=== PATIENT | female | born 1945 | race Caucasian/White ===

== ENCOUNTER → 2016-04-08 | Outpatient (CLI) | payer OTHER ==
[~2016-04-08] MED LIST: ACET-1311 PO; ANAS1TAB19 PO; ASPI-390 PO; ASPI325T45 PO; CHLO1TAB PO; COEN1CAP37 PO; DIPH-416 PO; DIPH25CA65 PO; FEXO3TAB PO; FLUT1INH INH; GLUCTAB54 PO; INDSR80 PO; IPRA1AER2 INH; JOINT EFFORT PO; LEVO88TA3 PO; MISCCAP80 PO; MULTTAB58 PO; NAPR1TAB9 PO; ONDA4TAB46 PO; TURM1CAP4 PO; [UNRECOGNIZED DRUG - OTHER] PO
[2016-04-08 15:55] LABS: BASO % 0.2 %; BASO ABS # 0.04 K/uL (0-0.2); COMPLETE YES; HEMATOCRIT 37.7 % (37-47); IG% 0.8 %; LYMPH ABS # 2.91 K/uL (1.2-3.4); MEAN CELL VOLUME 89.1 fL (80-100); MEAN CORPUSCULAR HEMOGLOBIN 29.1 pg (25-34); MEAN CORPUSCULAR HGB CONC 32.6 g/dl (32-36); MEAN PLATELET VOLUME 9.5 fL (7.4-10.4); MONO % 12.9 %; NEUT % 68.1 %; PLATELET COUNT 362 K/uL (130-400); RED BLOOD COUNT 4.23 M/uL (4.2-5.4); WHITE BLOOD COUNT 19.42 K/uL (4.8-10.8)
[2016-04-08 18:14] LABS: ALB/GLOB RATIO 0.7 (0.9-2); ALKALINE PHOSPHATASE 106 U/L (45-117); ALT/SGPT 17 U/L (12-78); AST/SGOT 15 U/L (15-37); BLOOD UREA NITROGEN 14 mg/dl (7-18); BUN/CREATININE RATIO 15.5 (10-20); CALCIUM 9.6 mg/dl (8.5-10.1); CARBON DIOXIDE 32 mmol/L (21-32); CHLORIDE 98 mmol/L (98-107); CREATININE 0.88 mg/dl (0.60-1.20); GLUCOSE 97 mg/dl (70-99); POTASSIUM 4.6 mmol/L (3.5-5.1); SODIUM 137 mmol/L (136-145)
[2016-04-08 18:25] LABS: CHOLESTEROL 171 mg/dl (0-200); CHOLESTEROL/HDL RATIO 3.2; HDL CHOLESTEROL 53 mg/dl; LDL CHOLESTEROL CALCULATED 103 mg/dl; TRIGLYCERIDES 73 mg/dl (0-150); VERY LOW DENSITY LIPOPROT CALC 15 mg/dl
== END | disposition home or self-care (01) ==
LOC: C.LAB1850 13:41
PROVIDERS: ATTEND Internal Medicine Pulmonary Disease
DX: E66.01 Morbid (severe) obesity due to excess calories (principal); E03.9 Hypothyroidism, unspecified; I10 Essential (primary) hypertension; E78.5 Hyperlipidemia, unspecified; D72.9 Disorder of white blood cells, unspecified; G47.33 Obstructive sleep apnea (adult) (pediatric); J96.91 Respiratory failure, unspecified with hypoxia; C50.911 Malignant neoplasm of unspecified site of right female breast; G25.81 Restless legs syndrome

== ENCOUNTER → 2016-04-10 | Outpatient (CLI) | payer OTHER | END | disposition home or self-care (01) | LOC: C.LABSPEC 15:42 | PROVIDERS: ATTEND Internal Medicine Pulmonary Disease | DX: Z98.890 Other specified postprocedural states (principal) ==

== ENCOUNTER → 2016-04-28 | Day surgery (SDC) | payer OTHER ==
[2016-04-19 11:00] VITALS: BMI 59.0
[~2016-04-28] VITALS: Ht 167.6 cm; Wt 170.4 kg
[~2016-04-28] MED LIST changes: +ACETAMINOPHEN 500 MG TAB PO ONE; -COEN1CAP37 PO; -GLUCTAB54 PO; +LABETALOL HCL IV 5 MG/ML 20ML ONE; +LIDOCAINE HCL 2% 2 ML VIAL (20MG/ML) ONE; +MIDAZOLAM HCL 1 MG/ML 2ML VIAL ONE; -MISCCAP80 PO; +NURSING VERBAL MED ORDER ONE; +PROPOFOL IV EMULSION 10 MG/ML 20 ML VIAL IV ONE; -TURM1CAP4 PO
[2016-04-28 13:15] VITALS: Ht 167.6 cm; Wt 170.4 kg
--- NOTE | 2016-04-28 13:36 | Endo History and Physical ---
History & Physical Date of Service: Apr 28, 2016. Chief Complaint: Screening Referring Physician: Dr. Govea History of Present Illness 70 yo CF who presents for screening colonoscopy. Past Medical History Blood Dyscrasias, Cancer, Sleep Apnea, Thyroid Disease Past Surgical History Hx Cardiac Surgery: No Hx Internal Defibrillator: No Hx Pacemaker: No Hx Abdominal Surgery: Yes (CIRO, LAPRAOSCOPY, TUBAL LIGATION) Hx of Implantable Prosthesis: No Hx Post-Op Nausea and Vomiting: No Hx Cancer Surgery: Yes (RT BREAST LUMP AND LYMPH NODE REMOVAL) Hx Thoracic Surgery: No Hx Orthopedic: No Hx Urinary Tract Surgery: No Family History Polyp Social History Smoking Status: Never Smoker Hx Substance Use: Yes (HX MARIJUANA USE ) Hx Alcohol Use: No Allergies Coded Allergies: Latex1 -Allergic Contact Dermititis (Verified Allergy, Unknown, IF ON SKIN FOR LONG PERIOD OF TIME, SHE GETS RED,RASH,ITCH, 04/28/16) Nickel (Verified Allergy, Unknown, contact dermatitis, 04/28/16) Codeine (Unverified Adverse Reaction, Mild, GI UPSET, 04/28/16) Current Medications Reported Home Medications Medications Dose Route/Sig Max Daily Dose Days Date Category Dose Instructions Contac Cold/Flu Day/Night (Chlorpheniramine-Phenylephrine) 1 Tab Tab 1 Tab PO DAILY PRN 04/19/16 Reported [Joint Effort] 1 Pkt PO QPM 04/19/16 Reported Breo Ellipta (Fluticasone Furoate-Vilanterol) 1 Inh Inh 1 Puff INH UD 04/19/16 Reported Arimidex (Anastrozole) 1 Mg Tab 1 Mg PO QAM 04/19/16 Reported Benadryl Allergy (Diphenhydramine Hcl) 25 Mg Cap 1 Cap PO HS PRN 09/05/15 Reported Lomotil (Diphenoxylate HCl/Atropine) Tab 1 Tab PO BID PRN 09/05/15 Reported Zofran (Ondansetron HCl) 4 Mg Tab 4 Mg PO BID PRN 09/05/15 Reported [Seratame] 2 Tab PO HS 09/05/15 Reported RESTLESS LEG Aleve (Naproxen) 220 Mg Tab 440 Mg PO HS 09/05/15 Reported Mucinex Allergy (Fexofenadine HCl) 180 Mg Tab 180 Mg PO BID 09/05/15 Reported Tylenol (Acetaminophen) 325 Mg Tab 650 Mg PO BID PRN 5/24/16 Reported Excedrin Migraine (Rqklmcp-Vdmnnawragrpq-Rhcbmcxx) 1 Tab Tab 1 Tab PO QAM PRN 08/15/15 Reported Multivitamin (Multiple Vitamin) 1 Tab Tab 1 Tab PO QAM 08/15/15 Reported Aspirin 325 Mg Tab 1 Tab PO PM 08/15/15 Reported Levothyroxine Sodium 88 Mcg Tab 1 Tab PO QAM 08/11/15 Reported Combivent Respimat (Ipratropium-Albuterol) 1 Aer Aer 2 Puffs INH QID PRN 07/16/14 Reported Propranolol HCl ER (Propranolol HCl) 80 Mg Capcr 80 Mg PO QPM 06/23/14 Reported Vital Signs Weight (Kilograms): 170.45 Height (Feet): 5 Height (Inches): 6 Physical Exam General Appearance: WD/WN, no apparent distress Respiratory/Chest: Auscultation: breath sounds normal Cardiovascular: Heart Auscultation: RRR Abdomen: Bowel Sounds: normal Inspection & Palpation: soft, non-distended, no tenderness, guarding & rebound Assessment and Plan Assessment: 70 yo CF who presents for screening colonoscopy. Plan: Proceed with colonoscopy.
--- NOTE | 2016-04-28 14:35 | Discharge Instructions ---
Endoscopy Patient Instructions Date / Procedure(s) Performed Apr 28, 2016. Colonoscopy Allergy Information Coded Allergies: Latex1 -Allergic Contact Dermititis (Verified Allergy, Unknown, IF ON SKIN FOR LONG PERIOD OF TIME, SHE GETS RED,RASH,ITCH, 04/28/16) Nickel (Verified Allergy, Unknown, contact dermatitis, 04/28/16) Codeine (Unverified Adverse Reaction, Mild, GI UPSET, 04/28/16) Discharge Date / Findings Apr 28, 2016. Colon polyps Rectal polyps Internal hemorrhoids Medication Instructions Stopped Medication(s): TAKE ONLY THYROID PROPANOLOL AND ARIMIIDEX OK to resume all medications today as prescribed Reported Home Medications Medications Dose Route/Sig Max Daily Dose Days Date Category Dose Instructions Contac Cold/Flu Day/Night (Chlorpheniramine-Phenylephrine) 1 Tab Tab 1 Tab PO DAILY PRN 04/19/16 Reported [Joint Effort] 1 Pkt PO QPM 04/19/16 Reported Breo Ellipta (Fluticasone Furoate-Vilanterol) 1 Inh Inh 1 Puff INH UD 04/19/16 Reported Arimidex (Anastrozole) 1 Mg Tab 1 Mg PO QAM 04/19/16 Reported Benadryl Allergy (Diphenhydramine Hcl) 25 Mg Cap 1 Cap PO HS PRN 09/05/15 Reported Lomotil (Diphenoxylate HCl/Atropine) Tab 1 Tab PO BID PRN 09/05/15 Reported Zofran (Ondansetron HCl) 4 Mg Tab 4 Mg PO BID PRN 09/05/15 Reported [Seratame] 2 Tab PO HS 09/05/15 Reported RESTLESS LEG Aleve (Naproxen) 220 Mg Tab 440 Mg PO HS 09/05/15 Reported Mucinex Allergy (Fexofenadine HCl) 180 Mg Tab 180 Mg PO BID 09/05/15 Reported Tylenol (Acetaminophen) 325 Mg Tab 650 Mg PO BID PRN 08/19/15 Reported Excedrin Migraine (Husylns-Mutslxofeolvm-Qlbofwrb) 1 Tab Tab 1 Tab PO QAM PRN 08/15/15 Reported Multivitamin (Multiple Vitamin) 1 Tab Tab 1 Tab PO QAM 08/15/15 Reported Aspirin 325 Mg Tab 1 Tab PO PM 08/15/15 Reported Levothyroxine Sodium 88 Mcg Tab 1 Tab PO QAM 08/11/15 Reported Combivent Respimat (Ipratropium-Albuterol) 1 Aer Aer 2 Puffs INH QID PRN 07/16/14 Reported Propranolol HCl ER (Propranolol HCl) 80 Mg Capcr 80 Mg PO QPM 06/23/14 Reported Provider Instructions Activity Restrictions - No exercising or heavy lifting for 24 hours. - Do not drink alcohol the day of the procedure. - Do not drive a car or operate machinery until the day after the procedure. - Do not make any important decisions or sign important papers in 24 hours after the procedure. Following Day: - Return to full activity which may include returning to work/school. Diet Start your diet with liquids and light foods (jello, soup, juice, toast). Then eat your usual diet if not nauseated. Treatment For Common After Affects For mild abdominal pain, bloating, or excessive gas: - Rest - Eat lightly - Lie on right side Follow-Up Information Follow-up with DR ROME as scheduled Anesthesia Information What You Should Know You have had a procedure that required some medicine to reduce anxiety and discomfort. This treatment is called moderate sedation. After receiving the treatment, you may be sleepy, but you will be able to breathe on your own. The effects of the treatment may last for several hours. Follow these instructions along with Activity/Diet recommendations noted above: * Do NOT do anything where dizziness or clumsiness would be dangerous. * Rest quietly at home today, then you can be up and about tomorrow. * Have a responsible person stay with you the rest of today. * You may have had an I.V. today. If so, you may take the dressing off later today. Recommendations Call your doctor if: * Trouble breathing * Continuous vomiting for more than 24 hours * Temperature above 101 degrees * Severe abdominal pain or bloating * Pain not relieved by pain medicine ordered * There is increased drainage or redness from any incision * A large amount of rectal bleeding greater than 2-3 tablespoons. (If you had a polyp/s removed or have hemorrhoids, a small amount of blood - from the rectum is to be expected.) * You have any unanswered questions or concerns. IN THE EVENT OF A SERIOUS EMERGENCY, GO TO THE NEAREST EMERGENCY ROOM Your discharge instructions were prepared by provider Errol Fitzgerald. Patient Instructions Signature Page Rose Santos Patient (or Guardian) Signature/Date: I have read and understand the instructions given to me by my caregivers. Caregiver/RN/Doctor Signature/Date: The above-named patient and/or guardian has received patient instructions on this date. + Original Patient Signature Page (only) stays with chart. Please make copy for patient.
--- NOTE | 2016-04-28 14:40 | GI REPORT ---
Procedure Date: 04/28/2016 1:59 PM Procedure: Colonoscopy Indications: Screening for colorectal malignant neoplasm Medicines: Monitored Anesthesia Care Complications: No immediate complications. Estimated Blood Loss: Estimated blood loss: none. Procedure: Pre-Anesthesia Assessment: - Prior to the procedure, a History and Physical was performed, and patient medications and allergies were reviewed. The patient's tolerance of previous anesthesia was also reviewed. The risks and benefits of the procedure and the sedation options and risks were discussed with the patient. All questions were answered, and informed consent was obtained. Prior Anticoagulants: The patient has taken aspirin, last dose was 1 day prior to procedure. ASA Grade Assessment: IV - A patient with severe systemic disease that is a constant threat to life. After reviewing the risks and benefits, the patient was deemed in satisfactory condition to undergo the procedure. After I obtained informed consent, the scope was passed under direct vision. Throughout the procedure, the patient's blood pressure, pulse, and oxygen saturations were monitored continuously. The scope was introduced through the anus and advanced to the terminal ileum. The colonoscopy was performed without difficulty. The patient tolerated the procedure well. The quality of the bowel preparation was good. The terminal ileum, ileocecal valve, appendiceal orifice, and rectum were photographed. Findings: Four sessile polyps were found in the rectum and in the cecum. The polyps were 5 to 8 mm in size. These polyps were removed with a hot snare. Resection and retrieval were complete. Non-bleeding internal hemorrhoids were found during retroflexion. The hemorrhoids were small. Impression: - Four 5 to 8 mm polyps in the rectum and in the cecum, removed with a hot snare. Resected and retrieved. - Non-bleeding internal hemorrhoids. Recommendation: - Resume previous diet. - Continue present medications. - Repeat colonoscopy for surveillance based on pathology results. - Return to primary care physician as previously scheduled. Errol Fitzgerald DO 04/28/2016 2:41:00 PM This report has been signed electronically. Note Initiated On: 04/28/2016 1:59 PM
--- NOTE | 2016-04-28 15:09 | Anesthesiology Progress Note ---
Anesthesia Post Op Note Date & Time Apr 28, 2016 at 15:09 Vital Signs Pain Intensity: 0 Vital Signs Past 12 Hours Date Time Temp Pulse Resp B/P Pulse Ox O2 Delivery O2 Flow Rate FiO2 04/28/16 14:58 87 20 185/78 97 Room Air 04/28/16 14:40 85 20 164/71 97 Room Air 04/28/16 13:41 36.5 83 24 131/49 95 Room Air Notes Mental Status: alert / awake / arousable, participated in evaluation Pt Amnestic to Procedure: Yes Nausea / Vomiting: adequately controlled Pain: adequately controlled Airway Patency, RR, SpO2: stable & adequate BP & HR: stable & adequate Hydration State: stable & adequate Anesthetic Complications: no major complications apparent
[2016-04-28 15:31] VITALS: BP 142/61; PULSE 81; O2SAT 97
== END | disposition home or self-care (01) ==
LOC: C.GI 12:24
PROVIDERS: ATTEND Internal Medicine
DX: Z12.11 Encounter for screening for malignant neoplasm of colon (principal); D12.0 Benign neoplasm of cecum; D12.8 Benign neoplasm of rectum; K64.8 Other hemorrhoids

== ENCOUNTER → 2016-12-10 | Outpatient (CLI) | payer OTHER ==
[~2016-12-10] MED LIST changes: -ACETAMINOPHEN 500 MG TAB PO ONE; -LABETALOL HCL IV 5 MG/ML 20ML ONE; -LIDOCAINE HCL 2% 2 ML VIAL (20MG/ML) ONE; -MIDAZOLAM HCL 1 MG/ML 2ML VIAL ONE; -NURSING VERBAL MED ORDER ONE; -PROPOFOL IV EMULSION 10 MG/ML 20 ML VIAL IV ONE
--- NOTE | 2016-12-13 13:09 | MAMMOGRAPHY REPORT ---
BILATERAL DIGITAL SCREENING MAMMOGRAM WITH CAD: 12/10/2016 CLINICAL HISTORY: Asymptomatic. Personal history of breast cancer. TECHNIQUE: Current study was also evaluated with a Computer Aided Detection (CAD) system. Bilateral CC and MLO views were obtained. Tomosynthesis images were attempted however the patient could not t olerate holding her breath for adequate images. Only tomosynthesis images of the right cc view were obtained. COMPARISON: Comparison is made to exams dated: 08/19/2015 specimen, 08/19/2015 localization, 07/23/2015 mammogram, 07/07/2015 mammogram - [facility], 12/31/2008, and 03/06/2008. BREAST COMPOSITION: There are scattered areas of fibroglandular density in both breasts. FINDINGS: There are new post surgical changes in the right anterior breast from prior lumpectomy. A few calcifications are seen at the surgical bed, which could represent dystrophic calcifications fro m fat necrosis, however, spot magnification views are recommended for further evaluation. The remainder of both breasts are stable compared to prior exams, without suspicious masses, calcific ations, or areas of architectural distortion noted. Bilateral asymmetries and other scattered bilate ral benign-appearing calcifications are not significantly changed. IMPRESSION: ACR BI-RADS CATEGORY 0: INCOMPLETE EVALUATION: NEED ADDITIONAL IMAGING EVALUATION Calcifications at the surgical bed in the right breast, which may represent fat necrosis although add itional imaging evaluation is needed. The patient will be called to schedule an appointment. Approximately 10% of breast cancers are not detected with mammography. A negative mammographic report should not delay biopsy if a clinically suggestive mass is present. Caty Camacho M.D. ah/:12/10/2016 16:48:26 Interactive Producer: Maria G HORN(R)(M), [facility] letter sent: Addl Imaging 0 BI-RADS Code: ACR BI-RADS Category 0: Incomplete Evaluation: Need Additional Imaging Evaluation
== END | disposition home or self-care (01) ==
LOC: C.MAMM 13:35
PROVIDERS: ATTEND Internal Medicine Hematology & Oncology
DX: Z12.31 Encounter for screening mammogram for malignant neoplasm of breast (principal); R92.1 Mammographic calcification found on diagnostic imaging of breast; Z85.3 Personal history of malignant neoplasm of breast

== ENCOUNTER → 2016-12-28 | Outpatient (CLI) | payer OTHER ==
--- NOTE | 2016-12-28 15:29 | MAMMOGRAPHY REPORT ---
UNILATERAL RIGHT DIGITAL DIAGNOSTIC MAMMOGRAM: 12/28/2016 CLINICAL HISTORY: 71-year-old woman called back from screening mammography for possible new calcifica tions near the lumpectomy bed in the right breast. Patient has a history of invasive lobular carcino ma status post breast conservation treatment. TECHNIQUE: Spot magnification right CC and ML views were obtained. COMPARISON: Comparison is made to exams dated: 12/10/2016 mammogram, 07/23/2015 mammogram, 07/07/2015 ammogram - [facility], 12/31/2008, and 03/06/2008. BREAST COMPOSITION: There are scattered areas of fibroglandular density in the right breast. FINDINGS: Spot magnification views of the anterior right breast demonstrate a probable rim calcificat ion in the 9:00 anterior breast measuring 1.3 mm. A second somewhat coarse calcification is seen in the superior breast on the spot magnification MLO view. There are no suspicious clustered or grouped microcalcifications to suggest recurrent disease. No obvious mass or asymmetry. IMPRESSION: ACR-BI-RADS CATEGORY 3: PROBABLY BENIGN There is a single probable early rim calcification in the 9:00 anterior right breast, most likely dys trophic. There are no suspicious clustered micro-calcifications currently seen. Given that this is new comparing to the preoperative mammograms, a short interval follow-up right diagnostic mammogram i ncluding spot magnification views is recommended to ensure stability in 6 months. These results and recommendations were discussed with the patient at the time of the exam. Approximately 10% of breast cancers are not detected with mammography. A negative mammographic report should not delay biopsy if a clinically suggestive mass is present. Dbera Bajwa M.D. ay/:12/28/2016 13:14:37 Attending Technologist: Idalmis Diaz RT(R)(M), [facility] Cheese Processor: Maria G Heard RT(R)(M), [facility] letter sent: Follow Up Recommended 3 BI-RADS Code: ACR-BI-RADS Category 3: Probably Benign
== END | disposition home or self-care (01) ==
LOC: C.MAMM 12:48
PROVIDERS: ATTEND Internal Medicine Hematology & Oncology
DX: R92.8 Other abnormal and inconclusive findings on diagnostic imaging of breast (principal)

== ENCOUNTER → 2017-08-02 | Outpatient (CLI) | payer OTHER ==
[~2017-08-02] MED LIST changes: +ASPECOTC PO; -ASPI325T45 PO
--- NOTE | 2017-08-03 15:06 | MAMMOGRAPHY REPORT ---
UNILATERAL RIGHT DIGITAL DIAGNOSTIC MAMMOGRAM TOMOSYNTHESIS WITH CAD: 08/02/2017 CLINICAL HISTORY: 71-year-old woman with a personal history of lobular carcinoma of the right breast presents for continued follow-up after treatment and also to reassess a probable benign rim calcifica tion near the surgical site in the upper outer anterior right breast. TECHNIQUE: Right breast tomosynthesis in addition to standard 2D mammography was performed. Spot mag nification right CC and ML views were also obtained. Current study was also evaluated with a Compute r Aided Detection (CAD) system. COMPARISON: Comparison is made to exams dated: 12/31/2008, 07/07/2015 mammogram, 07/23/2015 mammogram, 08/19/2015 localization, 08/19/2015 specimen, and 12/10/2016 mammogram - [facility]. BREAST COMPOSITION: There are scattered areas of fibroglandular density in the right breast. FINDINGS: The glandular pattern of the right breast is similar to prior mammograms. There is expecte d architectural distortion and skin irregularity in the upper outer anterior right breast, at the sit e of prior lumpectomy. There is an asymmetry in the middle one third of the right breast along the p osterior nipple line on the cc view that appears similar on prior mammograms dating back to at least 2007. No obvious new mass, architectural distortion or cluster of microcalcifications is seen. The spot magnification views obtained in the anterior right breast demonstrate the previously observe d possible early rim calcification is no longer seen, confirming benignity. IMPRESSION: ACR BI-RADS CATEGORY 2: BENIGN Resolution of the previously observed probable early rim calcification in the anterior upper outer ri ght breast near the surgical site, confirming benignity. There is no mammographic evidence of malign clyde in the right breast. The patient is due for bilateral mammography in November 2017 and would r ecommend remaining a diagnostic patient in case any additional mammographic views and/or ultrasound m ay be needed. The patient has been verbally notified of the results. Approximately 10% of breast cancers are not detected with mammography. A negative mammographic report should not delay biopsy if a clinically suggestive mass is present. Debra Bajwa M.D. ay/:08/02/2017 15:13:41 Flaring Machine Operator: Hui Hunter RT(R)(M), [facility] letter sent: Normal 03/29 BI-RADS Code: ACR BI-RADS Category 2: Benign
== END | disposition home or self-care (01) ==
LOC: C.MAMM 14:11
PROVIDERS: ATTEND Internal Medicine Hematology & Oncology
DX: C50.411 Malignant neoplasm of upper-outer quadrant of right female breast (principal)

== ENCOUNTER → 2017-08-02 | Outpatient (CLI) | payer OTHER ==
[2017-08-02 15:35] LABS: BASO % 0.5 %; BASO ABS # 0.08 K/uL (0-0.2); EOS % 3.6 %; EOS ABS # 0.56 K/uL (0-0.5); HEMATOCRIT 40.6 % (37-47); HEMOGLOBIN 13.6 g/dL (12.0-16.0); LYMPH % 17.8 %; LYMPH ABS # 2.76 K/uL (1.2-3.4); MEAN CELL VOLUME 90.8 fL (80-100); MEAN CORPUSCULAR HEMOGLOBIN 30.4 pg (25-34); MEAN CORPUSCULAR HGB CONC 33.5 g/dl (32-36); MEAN PLATELET VOLUME 9.7 fL (7.4-10.4); MONO % 14.6 %; MONO ABS # 2.26 K/uL (0.11-0.59); NEUT % 62.9 %; NEUT ABS # 9.71 K/uL (1.4-6.5); PLATELET COUNT 333 K/uL (130-400); RED CELL DISTRIBUTION WIDTH CV 13.7 % (11.5-14.5); RED CELL DISTRIBUTION WIDTH SD 45.4 fL (36.4-46.3); WHITE BLOOD COUNT 15.47 K/uL (4.8-10.8)
[2017-08-02 16:03] LABS: ALBUMIN 3.4 gm/dl (3.4-5.0); ALT/SGPT 20 U/L (12-78); AST/SGOT 19 U/L (15-37); BLOOD UREA NITROGEN 12 mg/dl (7-18); CALCIUM 10.3 mg/dl (8.5-10.1); CARBON DIOXIDE 32 mmol/L (21-32); CREATININE 0.93 mg/dl (0.60-1.20); GLUCOSE 102 mg/dl (70-99); POTASSIUM 3.9 mmol/L (3.5-5.1); SODIUM 134 mmol/L (136-145)
[2017-08-02 16:06] LABS: ALKALINE PHOSPHATASE 105 U/L (45-117); TOTAL PROTEIN 8.1 gm/dl (6.4-8.2)
== END | disposition home or self-care (01) ==
LOC: C.LAB1850 14:48
PROVIDERS: ATTEND Internal Medicine Hematology & Oncology
DX: C50.411 Malignant neoplasm of upper-outer quadrant of right female breast (principal)

== ENCOUNTER 2019-04-16 07:37 | Observation (INO) ==
--- NOTE | 2019-04-10 14:16 | Anesthesiology Consultation ---
Date of Service April 10, 2019 Assessment & Plan (1) Encounter for pre-operative examination: *DIFFICULT AIRWAY* Chart Review Chart Review: Acceptable Risk for Surgery (pending pre op testing) and Patient seen in Pre Admission Testing Teaching & Discussion Instructed NPO after midnight before surgery, except medications with 15 cc of water. Medication instructions provided according to the PAT guidelines. History Surgery Operation Date: 04/16/19 07:00 Proposed Procedures p Left Breast Biopsy with Needle Localization - Dereck Petty MD, FACS Height/Weight Height: 5 ft 7 in Weight: 174.633 kg Allergies Allergy/AdvReac Type Severity Reaction Status Date / Time latex Allergy Unknown IF ON SKIN Verified 04/06/19 08:11 FOR LONG PERIOD OF TIME, SHE GETS RED,RASH,ITCH nickel Allergy Unknown contact Verified 04/06/19 08:11 dermatitis codeine AdvReac Mild GI UPSET Unverified 04/06/19 08:11 Medications Home Medications Medication Instructions Recorded Confirmed Last Taken clotrimazole-betamethasone 1 1 applic TOPICAL BID PRN #1 gm 10/23/18 04/06/19 Unknown %-0.05 % topical cream fluticasone furoate 100 1 inh INHALATION DAILY PRN #60 ea 10/23/18 04/06/19 Unknown mcg-vilanterol 25 mcg/dose inhalation powder ipratropium 20 mcg-albuterol 100 1 puff INHALATION QID PRN #4 gm 10/23/18 04/06/19 Unknown mcg/actuation mist for inhalation multivitamin 1 tab PO DAILY 10/23/18 04/06/19 Unknown aspirin 325 mg tablet 325 mg PO QPM tab 02/11/19 04/06/19 Unknown diphenoxylate-atropine 2.5 1 tab PO Q6H PRN #30 tab 02/11/19 04/06/19 Unknown mg-0.025 mg tablet ondansetron 4 mg disintegrating 4 mg PO Q8H PRN #30 tab 02/11/19 04/06/19 Unknown tablet anastrozole 1 mg tablet 1 mg PO QAM 04/05/19 04/06/19 Unknown levothyroxine 175 mcg PO QAM 04/06/19 04/06/19 Unknown propranolol 80 mg PO QPM 04/06/19 04/06/19 Unknown Past Medical History Medical History (Updated 04/10/19 @ 14:39 by Anthony Dinh) Graves disease H/O radioactive iodine thyroid ablation Hearing deficit BL BENITEZ History of breast cancer RIGHT BREAST LUMPECTOMY History of colon polyps Hypertension Morbid obesity with BMI of 60.0-69.9, adult Osteoarthritis Sleep apnea CPAP + 2 LPM OXYGEN QHS Exercise / Class Metabolic Activity IV < 2 Limit ADL/Bedbound (Uses walker at home, very limited movement in general; wheelchair in public) Past Surgical History Surgical History Difficult airway for intubation History of arthroscopy of left knee History of arthroscopy of right knee History of cataract surgery History of cholecystectomy History of colonoscopy History of endometrial biopsy History of esophagogastroduodenoscopy (EGD) History of hysteroscopy History of lumpectomy of right breast History of tonsillectomy History of tubal ligation Past Anesthesia History Difficult Airway OTHER FAMILY MEMBERS ALSO NOTED TO HAVE DIFFICULT AIRWAYS FOR INTUBATION PER PATIENT DIFFICULT INTUBATION [address] PADGETT: "We had some difficulty w / the airway as noted in the anesthesia record. This was partially due to redundant soft tissue due to obesity/OLGA, partially due to an anterior glottis, and partially due to blood in the airway. The blood actually occurred prior to the difficulty. We noted blood as soon as we first placed the Glidescope 3 blade in the mouth in a seemingly atraumatic manner. We were never able to determine the source of the bleeding, but it has since completely stopped. She does have some tiny spots of upper lip bruising but that occurred after we had some difficulty and was not the source of bleeding. With the Glidescope 3, we could only obtain a grade 3 view. We were able to mask ventilate easily w/ an oral airway and two providers. With a Glidescope 4, we were able to obtain a grade 2 view. I think this was partially due to the change in blade and partially due to the fact that the bleeding had ceased. With our first attempt w/ the Glidescope 4, we were unable to manipulate the ETT anterior enough to make it pass the cords. On a second attempt w/ external airway manipulation, we were able to pass the ETT through the cords. The cords were always clear and there was no suggestion of aspiration. We never had problems w/ oxygenation during the case. Lungs were clear. She was extubated uneventfully. She's now in the PACU w/ a mild sore throat but mostly pain in her breast. This has improved w/ fentanyl. We gave PO acetaminophen pre-op in attempt to minimize opiates and just gave Toradol as well since the bleeding has completely stopped. Her pain is now tolerable. I can't see any source of bleeding in her mouth. I see no dental trauma and the pt also cannot detect any. Dr. Petty's pre-op plan was to admit the pt overnight and that is still the case. I'm ordering continuous pulse ox given her morbid obesity, OLGA, and potential need for further opiates. She brought her CPAP w/ her so she can use that. I explained everything to the pt. I don't think the pt necessarily requires an awake fiberoptic intubation in the future since we were able to get a reasonable view w/ a Glidescope 4 as long as there was no blood and since we did not have problems w/ ventilation." History of PONV No Hx of Motion Sickness and History of PONV (very remote hx) Social History Smoking Status: Never smoker Do You Dip or Chew Tobacco: No Hx Alcohol Use: No Hx Substance Use: No Review of Systems Pt denies any recent chest pain, shortness of breath, palpitations, cough, fever or URI. Physical Exam Vital Signs Last Vital Signs Temp 36.1 C L 04/10/19 13:58 Pulse 76 04/10/19 13:58 Resp 20 04/10/19 13:58 BP 150/72 H 04/10/19 13:58 Pulse Ox 98 04/10/19 13:58 Repeat BP 144/82. Pt states she is nervous and BP is normally 110's systolic Constitutional + morbidly obese ENMT Mouth: + chipped teeth (upper R cuspid broken crown); no dentures and no loose teeth Thyromental Distance: > or= 3.5 Finger Breadths (3.5) Mallampati Class: IV Neck + thick neck; neck extension not limited Respiratory normal respiratory effort Auscultation: lungs clear to auscultation bilaterally Cardiovascular Rate/Rhythm: regular rate and regular rhythm Heart Sounds: no murmur
--- NOTE | 2019-04-10 14:58 | Electrocardiogram Report ---
Test Reason : Blood Pressure : / mmHG Vent. Rate : 067 BPM Atrial Rate : 067 BPM P-R Int : 186 ms QRS Dur : 090 ms QT Int : 392 ms P-R-T Axes : 070 -37 056 degrees QTc Int : 414 ms Normal sinus rhythm Left axis deviation Abnormal ECG When compared with ECG of 15-AUG-2015 15:29, No significant change was found Confirmed by Ramiro Gomez ([id number]) on 04/10/2019 2:58:28 PM Referred By: Dereck Petty Confirmed By:Ramiro Gomez
[2019-04-10 16:02] LABS: Basophils # (auto) 0.04 K/uL (0-0.2); Basophils % (auto) 0.3 %; Eosinophils # (auto) 0.55 K/uL (0-0.5); Eosinophils % (auto) 3.6 %; Hematocrit (blood only) 37.4 % (37-47); Hemoglobin 12.1 g/dL (12.0-16.0); Immature Granulocytes % (auto) 0.6 %; Lymphocytes # (auto) 2.33 K/uL (1.2-3.4); Lymphocytes % (auto) 15.1 %; Mean Corpuscular Hemoglobin 29.2 pg (25-34); Mean Corpuscular Hgb Conc 32.4 g/dL (32-36); Mean Corpuscular Volume 90.1 fL (80-100); Monocytes # (auto) 1.93 K/uL (0.11-0.59); Monocytes % (auto) 12.5 %; Neutrophils # (auto) 10.52 K/uL (1.4-6.5); Neutrophils % (auto) 67.9 %; Platelet Count 307 K/uL (130-400); RDW Coefficient of Variation 13.4 % (11.5-14.5); RDW Standard Deviation 44.4 fL (36.4-46.3); Red Blood Count 4.15 M/uL (4.2-5.4); White Blood Count 15.47 K/uL (4.8-10.8)
[2019-04-10 16:11] LABS: BUN Creatinine Ratio 16.2 (10-20); Calcium 9.8 mg/dl (8.5-10.1); Creatinine Clr Calc Pharmacy 92.1 ml/min; Est GFR (African American) 73.5; Est GFR (Non-African American) 63.4; Potassium 4.1 mmol/L (3.5-5.1)
[~2019-04-16 07:37] MED LIST changes: -ACET-1311 PO; -ANAS1TAB19 PO; -ASPECOTC PO; -ASPI-390 PO; +CEFAZOLIN 3000MG 72.5 ML IV SCH; -CHLO1TAB PO; -DIPH-416 PO; -DIPH25CA65 PO; -FEXO3TAB PO; -FLUT1INH INH; -INDSR80 PO; -IPRA1AER2 INH; -JOINT EFFORT PO; -LEVO88TA3 PO; +LR 15ML/HR IV SCH; -MULTTAB58 PO; -NAPR1TAB9 PO; -ONDA4TAB46 PO; -[UNRECOGNIZED DRUG - OTHER] PO
[2019-04-16] MEDS ORDERED: ePHEDrine sulfate 50 MG/ML AMP ONE (09:42)
[2019-04-16] MEDS ORDERED: LIDOCAINE HCL 2% 2 ML VIAL/AMP(20MG/ML) INFIL ONE (09:42)
[2019-04-16] MEDS ORDERED: NEOSTIGMINE METHYLSULFATE 5 MG/5 ML SYR ONE (09:42)
[2019-04-16] MEDS ORDERED: ONDANSETRON INJ 2 MG/ML 2 ML VIAL ONE (09:42)
[2019-04-16] MEDS ORDERED: PROPOFOL IV EMULSION 10 MG/ML 20 ML VIAL IV ONE (09:42)
[2019-04-16] MEDS ORDERED: SUCCINYLCHOLINE CHLORIDE 20 MG/ML 10 ML VIAL ONE (09:42)
[2019-04-16] MEDS ORDERED: PHENYLEPHRINE HCL 10 MG/ML VIAL ONE (09:42)
[2019-04-16] MEDS ORDERED: GLYCOPYRROLATE 0.2 MG/ML VIAL ONE (09:42)
[2019-04-16] MEDS ORDERED: DEXAMETHASONE SOD INJ 4 MG/ML VIAL ONE (09:42)
[2019-04-16] MEDS ORDERED: MIDAZOLAM HCL 1 MG/ML 2ML VIAL ONE (09:43)
[2019-04-16] MEDS ORDERED: fentaNYL citrate 100 MCG/2 ML VIAL ONE (09:43)
--- NOTE | 2019-04-16 10:04 | History & Physical Bridge Note ---
Date of Service April 16, 2019 History & Physical Bridge Note I have examined the patient, reviewed the History & Physical and in the interval since the performance of the History & Physical I have noted the following changes of clinical significance: no changes noted
[2019-04-16] MEDS ORDERED: ALBUTEROL HFA INHALER 8.5 GM ONE (10:53)
[2019-04-16] MEDS ORDERED: BUPIVACAINE 0.5 % 5 MG/1 ML MPF 30ML VIAL ONE (11:19)
[2019-04-16] MEDS ORDERED: METHYLENE BLUE 0.5% 10 ML VIAL ONE (11:47)
[2019-04-16] MEDS ORDERED: TRAMADOL HCL 50 MG TABLET PO PRN (12:06)
[2019-04-16] MEDS ORDERED: ONDANSETRON INJ 2 MG/ML 2 ML VIAL IV PRN (12:06)
[2019-04-16] MEDS ORDERED: IBUPROFEN 600 MG TAB PO PRN (12:06)
[2019-04-16] MEDS ORDERED: ACETAMINOPHEN 1,000 MG/100 ML VIAL IV STA (12:06)
--- NOTE | 2019-04-16 12:06 | Post Operative Brief Note ---
PG Immediate Post Op with CF Date of Surgery April 16, 2019 Pre & Post Diagnosis Operation Date: 04/16/19 10:30 Pre-Op Diagnosis: Abnormal Left Breast Mammogram I identified the patient and participated in the time-out.: Yes Procedure Operation Date: 04/16/19 10:30 Actual Procedures p Left Breast Biopsy with Needle Localization(Left) - Dereck Petty MD, FACS Surgeon Dereck Petty MD, FACS Milk Receiver Kindra An Estimated Blood Loss 10 Findings Consistent with Post-Op Diagnosis Specimens Specimen Description: A. Left Breast Biopsy--short silk=medial, long silk=lateral, blue dye=deep
[2019-04-16] MEDS ORDERED: SODIUM CHLORIDE 0.9% 1000ML 1,000 ML IV SCH (12:15)
--- NOTE | 2019-04-16 12:34 | Operative Report ---
DATE OF OPERATION: 04/16/2019 NAME OF OPERATION: Needle localization, left breast biopsy. PREOPERATIVE DIAGNOSIS: Abnormal left breast mammogram. POSTOPERATIVE DIAGNOSIS: Abnormal left breast mammogram. STAFF SURGEON: Dereck Petty M.D. FOUNDRY OPERATOR: Shelia An. ANESTHESIA: General. DESCRIPTION OF PROCEDURE: The patient was brought in the operating room and placed on the operating table in supine position. My critical care physician assistant helped with prepping, draping, excision of the breast tissue and closure of the wound. The patient was difficult intubation because of her morbid obesity and comorbidity. Also, her needle localization was somewhat difficult for the same reasons, the needle was lateral in the left breast. Left breast was prepped and draped with some difficulty with retraction. The area was exposed, skin and subcutaneous tissue anesthetized using 0.5% plain Marcaine. Incision was made around the needle carrying dissection down widely around the site, placing the specimen into the Faxitron. After labeling it with short silk suture medial, long silk suture lateral, methylene blue deep. The calcifications were within the tissue. I did take additional deep tissue, which appeared to be deep and anterior which was marked with methylene blue new margin. Deep tissue reapproximated using 2-0 plain suture and then the skin reapproximated using 4-0 nylon suture. Dressing applied and patient transferred to recovery room in stable condition. I attest to the content of the Intraoperative Record and any orders documented therein. Any exception s are noted below.
[2019-04-16] MEDS ORDERED: ALBUT/IPRATROP 3MG/0.5MG NEB 3 ML VIAL ONE (12:37)
[2019-04-16] MEDS ORDERED: ALBUT/IPRATROP 3MG/0.5MG NEB 3 ML VIAL NEB STA ×2 (12:37→12:43)
[2019-04-16] MEDS ORDERED: COUGH DROP (SUGAR FREE) LOZ 24 LOZ/1 BOX BUCCAL ONE (14:43)
--- NOTE | 2019-04-16 15:30 | Mammography Report ---
NEEDLE LOCALIZATION LEFT BREAST: 04/16/2019 CLINICAL HISTORY: 73-year-old woman with a history of right breast invasive lobular carcinoma present s for surgical excisional biopsy of small faint grouped calcifications in the left lower outer breast . She cannot tolerate positioning for stereotactic biopsy. COMPARISON: Comparison is made to exams dated: 02/19/2019 mammogram, 01/26/2019 mammogram, 12/28/2016 mammogram, and 12/10/2016 mammogram - [facility]. PATIENT CONSENT: The risks of the procedure were explained to the patient and informed consent was ob tained both verbally and in writing. Specific risks include: Bleeding, infection, puncture of adjace nt structure, nontarget localization, sampling error, medication reaction, dizziness/lightheadedness, bruising. The patient reported drinking sips of water throughout the night but not since 4:30 in th e morning. She discontinued medications prior to surgery. A timeout was performed and the left nghia st was confirmed as a site for preoperative localization. PROCEDURE DESCRIPTION: Several 2D and tomosynthesis plexiglas former views were obtained for localization purpos es during the procedure. With the patient in the seated position, the left breast was placed first i n lateralmedial compression. Using a skin BB marker as a reference point, a tomosynthesis image was obtained and with the aid of an alphanumeric grid the calcifications were identified and targeted. The skin of the lateral left breast was cleansed with alcohol. 1% buffered Lidocaine without epineph rine was administered as local anesthesia. A 7.5cm Sanches II needle and wire combination was inserte d into the breast. Optimal positioning was confirmed and the wire was locked in place, leaving both t he needle and wire within the breast, as per surgeon's preference. The entire procedure including ap proach and needle length were discussed with the operating surgeon prior to surgery. The patient gisell erated the procedure well and there was no immediate complication. She was sent to the operating woody m in satisfactory condition. A surgical specimen radiograph was obtained which demonstrates the localizing needle and wire as well as the grouped calcifications in question adjacent to the proximal kevin. Other calcifications are s een more anteriorly within the tissue specimen, consistent with successful preoperative localization and subsequent surgical excision. Some additional calcifications are noted at J/K4 on the grid. IMPRESSION: NEEDLE LOCALIZATION Status post left breast preoperative needle and wire localization for surgical excisional biopsy of i ndeterminate clustered calcifications in the lower outer left breast. The imaged specimen includes t he intended abnormalities. Surgical pathology is pending. Debra Bajwa M.D. ay/:04/16/2019 12:05:16 Attending Technologist: RT Mundo,R, M, [facility] Employment Law Attorney: RT Bean(R)(M), [facility]; RT Mundo,R, M, [facility]
[2019-04-16] MEDS ORDERED: ACETAMINOPHEN 325 MG TAB PO PRN (16:27)
[2019-04-16] MEDS ORDERED: IPRATROPIUM BROMIDE/ALBUTEROL respimat INH INH PRN (16:27)
--- NOTE | 2019-04-16 16:57 | Anesthesiology Progress Note ---
Date of Service April 16, 2019 Anesthesia Post Procedure Vital Signs Vital Signs: Temp Pulse Pulse Pulse Resp BP Pulse Ox 04/16/19 16:40 36.5 C 94 H 16 176/111 H 97 04/16/19 15:05 36.3 C L 85 20 175/94 H 93 04/16/19 14:54 84 20 179/92 H 94 04/16/19 14:46 36.3 C L 78 20 167/96 H 94 04/16/19 14:05 36.2 C L 78 20 167/96 H 94 04/16/19 13:55 36.2 C L 70 20 139/79 95 04/16/19 13:45 79 21 144/74 H 95 04/16/19 13:35 77 22 164/78 H 96 04/16/19 13:25 71 15 152/69 H 97 04/16/19 13:15 70 13 131/71 97 04/16/19 13:05 71 17 133/72 97 04/16/19 12:55 76 19 145/67 H 99 04/16/19 12:49 78 24 100 04/16/19 12:45 77 28 H 139/74 99 04/16/19 12:44 78 24 100 04/16/19 12:37 36.4 C L 86 21 101/66 99 04/16/19 10:01 36.4 C L 79 24 175/75 H 97 Transfer of Care Handoff Completed per policy Notes Mental Status: alert / awake / arousable and participated in evaluation Patient Amnestic to Procedure: Yes Nausea / Vomiting: adequately controlled Pain: adequately controlled Airway Patency, RR, SpO2: stable & adequate BP & HR: stable & adequate Hydration State: stable & adequate Anesthetic Complications: no major complications apparent and Pt Satisfied with anesthetic care Notes: The patient did well in Phase 1 recovery. She was initially placed on BIPAP after extubation as she often uses it at home with 2L of oxygen. Prior to discharge from phase 1 she was weaned off the BIPAP onto nasal cannula. She stated she felt well with no complaints. All vital signs stable. I instructed the patient to wear her BIPAP at home whenever she thinks she may fall asleep even if just for a nap on the couch. She understands and agrees. I also instructed the patient to go to the ED with any chest pain, shortness of breath, lightheaded or dizziness or with any other concerns. She understand and agrees.
[2019-04-16] MEDS ORDERED: ALBUT/IPRATROP 3MG/0.5MG NEB 3 ML VIAL NEB PRN (17:14)
--- NOTE | 2019-04-16 17:14 | Hospitalist Consultation ---
Date of Consultation April 16, 2019 Assessment & Plan (1) Encounter for pre-operative examination: S/p left breast biopsy with Dr. Petty on 04/16. - Post-operative care and follow up per primary team - Continue anastrozole for prior breast cancer (2) Obstructive sleep apnea of adult: Had post-operative hypoxemia due to obesity hypoventilation and obstructive sleep apnea. Presently satting 99% on 0.5L NC. She reports she uses nasal cannula O2 if she's at home watching TV. - CPAP HS with home settings of 14 cmH20 and 2L O2 added (3) Urinary incontinence: Long-standing issue. - No inpatient needs (4) Hypertension: BP post-operatively is 175/110. No symptoms. - Continue home propranolol - Could benefit from outpatient monitoring (5) Hypothyroidism: - Continue home levothyroxine (6) DVT prophylaxis: SCDs - Low DVT risk per admission calculator & short admission History of Present Illness Attending Physician: Dereck Petty MD, [facility] History of Present Illness 73yo F w/ hx of prior breast cancer who presents as a medical consult after left breast biopsy. Patient reports some shortness of breath after surgery, but is breathing well now. Overall, has no pain at the surgical site. Has hx of difficult intubation and OLGA. Allergies Allergy/AdvReac Type Severity Reaction Status Date / Time latex Allergy Unknown IF ON SKIN Verified 04/16/19 09:55 FOR LONG PERIOD OF TIME, SHE GETS RED,RASH,ITCH nickel Allergy Unknown contact Verified 04/16/19 09:55 dermatitis codeine AdvReac Mild GI UPSET Verified 04/16/19 09:55 Home Medications Home Medications Medication Instructions Recorded Confirmed Type clotrimazole-betamethasone 1 1 applic TOPICAL BID PRN #1 gm 10/23/18 04/16/19 History %-0.05 % topical cream fluticasone furoate 100 1 inh INHALATION DAILY PRN #60 ea 10/23/18 04/16/19 History mcg-vilanterol 25 mcg/dose inhalation powder ipratropium 20 mcg-albuterol 100 1 puff INHALATION QID PRN #4 gm 10/23/18 04/16/19 History mcg/actuation mist for inhalation multivitamin 1 tab PO DAILY 10/23/18 04/06/19 History aspirin 325 mg tablet 325 mg PO QPM tab 02/11/19 04/16/19 History diphenoxylate-atropine 2.5 1 tab PO Q6H PRN #30 tab 02/11/19 04/16/19 History mg-0.025 mg tablet ondansetron 4 mg disintegrating 4 mg PO Q8H PRN #30 tab 02/11/19 04/16/19 History tablet anastrozole 1 mg tablet 1 mg PO QAM 04/05/19 04/16/19 History levothyroxine 175 mcg PO QAM 04/06/19 04/16/19 History propranolol 80 mg PO QPM 04/06/19 04/16/19 History tramadol 50 - 100 mg PO Q6H PRN #20 tab 04/16/19 Rx Patient History Medical History Graves disease H/O radioactive iodine thyroid ablation Hearing deficit BL BENITEZ History of breast cancer RIGHT BREAST LUMPECTOMY History of colon polyps Hypertension Morbid obesity with BMI of 60.0-69.9, adult Osteoarthritis Sleep apnea CPAP + 2 LPM OXYGEN QHS Surgical History Difficult airway for intubation H/O breast biopsy (04/16/19) Left Breast Biopsy with Needle Localization Dr. Petty 04-16-19 History of arthroscopy of left knee History of arthroscopy of right knee History of cataract surgery History of cholecystectomy History of colonoscopy History of endometrial biopsy History of esophagogastroduodenoscopy (EGD) History of hysteroscopy History of lumpectomy of right breast History of tonsillectomy History of tubal ligation Family History Mother Cardiac disorder Aunt Difficult intubation Social History Preferred Language: Irish Communication Ability: Effective Gizzard Skin Remover Required: No Beliefs That Will Affect Care: None Current Living Situation: Spouse Other Information That Helps Us Care for You: No Feels Safe at Home: Yes Safety Concerns: Feels Safe At This Time Smoking Status: Never smoker Do You Dip or Chew Tobacco: No ; Second Hand Exposure: Yes ( A CHILD) ; Hx Alcohol Use: No Hx Substance Use: No Review of Systems Review of Systems: All systems reviewed & are unremarkable except as noted in HPI & below Physical Exam 2 Constitutional: WD/WN, vitals as above + obese Eyes: EOM intact bilaterally; no conjunctival abnormality ENMT: external ear and nose normal, oropharynx normal Neck: trachea midline, no thyromegaly normal visual inspection Respiratory: normal respiratory effort, lungs clear to auscultation no respiratory distress Cardiovascular: RRR, no murmur, no edema Gastrointestinal (Abdomen): Inspection/Auscultation: abdomen normal to inspection; abdomen not distended Musculoskeletal: no cyanosis or clubbing, extremities motor strength 5/5 Skin: no rashes, warm and dry Neurologic: moves all extremities and awake Psychiatric: Orientation: alert, oriented to person and cooperative Results & Data Vital Signs (Past 12 Hours) Vital Signs Temp Pulse Pulse Pulse Resp BP Pulse Ox 04/16/19 16:40 36.5 C 94 H 16 176/111 H 97 04/16/19 15:05 36.3 C L 85 20 175/94 H 93 04/16/19 14:54 84 20 179/92 H 94 04/16/19 14:46 36.3 C L 78 20 167/96 H 94 04/16/19 14:05 36.2 C L 78 20 167/96 H 94 04/16/19 13:55 36.2 C L 70 20 139/79 95 04/16/19 13:45 79 21 144/74 H 95 04/16/19 13:35 77 22 164/78 H 96 04/16/19 13:25 71 15 152/69 H 97 04/16/19 13:15 70 13 131/71 97 04/16/19 13:05 71 17 133/72 97 04/16/19 12:55 76 19 145/67 H 99 04/16/19 12:49 78 24 100 04/16/19 12:45 77 28 H 139/74 99 04/16/19 12:44 78 24 100 04/16/19 12:37 36.4 C L 86 21 101/66 99 04/16/19 10:01 36.4 C L 79 24 175/75 H 97 PG Care Time/CCT Total # of Minutes Spent Total Time Spent with Patient: Total time spent is greater than 50% in coordination of care (as documented) at patient's floor/unit and/or counseling patient:
[2019-04-16] MEDS ORDERED: PROPRANOLOL HCL LA 80 MG CAPCR PO SCH (21:00)
[2019-04-16] MEDS ORDERED: FLUTICASONE PROPIONATE NA SPR 16 GM BTL PRN (22:07)
[2019-04-17] MEDS ORDERED: COUGH DROP (SUGAR FREE) LOZ 24 LOZ/1 BOX BUCCAL PRN (04:39)
--- NOTE | 2019-04-17 06:11 | Surgery Progress Note ---
Date of Service April 17, 2019 Assessment & Plan (1) Sleep apnea: stable on Bipap overnight alert this am- feels much less groggy than postop Lt breast stable plan d/c home today possible visiting nurse for daily dressing changes see in office next week Results & Data Vital Signs (Past 12 Hours) Vital Signs Temp Pulse Pulse Resp BP Pulse Ox Pulse Ox 04/17/19 03:50 36.4 C L 78 18 136/64 90 04/17/19 02:51 81 30 H 94 04/17/19 00:31 78 15 93 04/16/19 23:30 93 04/16/19 23:00 36.4 C L 91 H 18 153/71 H 91 04/16/19 21:36 98 H 21 92 04/16/19 19:10 36.9 C 93 H 18 158/80 H 93 04/16/19 18:45 36.4 C L 103 H 18 140/82 94 04/16/19 18:10 36.6 C 89 18 157/80 H 95 PG Care Time/CCT Total # of Minutes Spent Total Time Spent with Patient: Total time spent is greater than 50% in coordination of care (as documented) at patient's floor/unit and/or counseling patient:
[2019-04-17] MEDS ORDERED: LEVOTHYROXINE SODIUM 175 MCG TABLET PO SCH (06:30)
--- NOTE | 2019-04-17 08:18 | Anesthesiology Progress Note ---
Date of Service April 17, 2019 Anesthesia Post Procedure Vital Signs Vital Signs: Temp Pulse Pulse Pulse Resp BP Pulse Ox 04/17/19 07:53 91 04/17/19 07:21 36.9 C 72 18 119/66 94 04/17/19 03:50 36.4 C L 78 18 136/64 90 04/17/19 02:51 81 30 H 94 04/17/19 00:31 78 15 93 04/16/19 23:30 04/16/19 23:00 36.4 C L 91 H 18 153/71 H 91 04/16/19 21:36 98 H 21 92 04/16/19 19:10 36.9 C 93 H 18 158/80 H 93 04/16/19 18:45 36.4 C L 103 H 18 140/82 94 04/16/19 18:10 36.6 C 89 18 157/80 H 95 04/16/19 17:10 36.6 C 85 18 169/89 H 95 04/16/19 16:40 36.5 C 94 H 16 176/111 H 97 04/16/19 15:05 36.3 C L 85 20 175/94 H 93 04/16/19 14:54 84 20 179/92 H 94 04/16/19 14:46 36.3 C L 78 20 167/96 H 94 04/16/19 14:05 36.2 C L 78 20 167/96 H 94 04/16/19 13:55 36.2 C L 70 20 139/79 95 04/16/19 13:45 79 21 144/74 H 95 04/16/19 13:35 77 22 164/78 H 96 04/16/19 13:25 71 15 152/69 H 97 04/16/19 13:15 70 13 131/71 97 04/16/19 13:05 71 17 133/72 97 04/16/19 12:55 76 19 145/67 H 99 04/16/19 12:49 78 24 100 04/16/19 12:45 77 28 H 139/74 99 04/16/19 12:44 78 24 100 04/16/19 12:37 36.4 C L 86 21 101/66 99 04/16/19 10:01 36.4 C L 79 24 175/75 H 97 Pulse Ox 04/17/19 07:53 04/17/19 07:21 04/17/19 03:50 04/17/19 02:51 04/17/19 00:31 04/16/19 23:30 93 04/16/19 23:00 04/16/19 21:36 04/16/19 19:10 04/16/19 18:45 04/16/19 18:10 04/16/19 17:10 04/16/19 16:40 04/16/19 15:05 04/16/19 14:54 04/16/19 14:46 04/16/19 14:05 04/16/19 13:55 04/16/19 13:45 04/16/19 13:35 04/16/19 13:25 04/16/19 13:15 04/16/19 13:05 04/16/19 12:55 04/16/19 12:49 04/16/19 12:45 04/16/19 12:44 04/16/19 12:37 04/16/19 10:01 Pain Intensity Left Breast: Pain Intensity: 0 Notes Mental Status: alert / awake / arousable and participated in evaluation Patient Amnestic to Procedure: Yes Nausea / Vomiting: adequately controlled Pain: adequately controlled Airway Patency, RR, SpO2: stable & adequate BP & HR: stable & adequate Hydration State: stable & adequate Anesthetic Complications: no major complications apparent and Pt Satisfied with anesthetic care
[2019-04-17] MEDS ORDERED: ANASTROZOLE 1 MG TAB PO SCH (09:00)
[2019-04-17] MEDS ORDERED: FLUTICASONE/VILANTEROL 100/25MCG 14 PUFFS/INHALER INH SCH (09:00)
--- NOTE | 2019-04-18 14:40 | Discharge Summary ---
Date of Service April 18, 2019 Principal Diagnosis Abnormal mammogram s/p left breast biopsy OLGA Discharge Exam Constitutional WD/WN, vitals as above + morbidly obese Chest (Breasts) Additional Comments: surgical dressing in place, c/d/i Gastrointestinal (Abdomen) Inspection/Auscultation: abdomen normal to inspection; abdomen not distended Discharge Data Allergies Allergy/AdvReac Type Severity Reaction Status Date / Time latex Allergy Unknown IF ON SKIN Verified 04/16/19 09:55 FOR LONG PERIOD OF TIME, SHE GETS RED,RASH,ITCH nickel Allergy Unknown contact Verified 04/16/19 09:55 dermatitis codeine AdvReac Mild GI UPSET Verified 04/16/19 09:55 Consultations 04/16/19 16:27 Consult Hospitalist Routine 04/16/19 16:34 Consult Case Management - Discharge Planning Routine 04/17/19 05:50 Consult Case Management - Discharge Planning Routine Procedures Performed Operation Date: 04/16/19 10:30 Actual Procedures p Left Breast Biopsy with Needle Localization(Left) - Dereck Petty MD, FACS Hospital Course (1) H/O breast biopsy: This is a 73y F who presented to the [facility] for a planned left breast biopsy. On 04/16/19 the patient went to the OR for a left breast biopsy with Dr. Petty. The patient tolerated the procedure well, see op note for full details. The patient stayed overnight for observation. Post operatively her diet was advanced as tolerated without issues. Pulmonary toilet was worked on and CPAP was ordered for bedtime for history of OLGA. Surgical incisions remained clean/dry/and intact. The hospitalist's helped to follow the patient during her admission. On POD#1 (04/17) the patient was deemed stable for discharge to home. Case management helped set up the patient for home services. She was instructed to follow up in surgery clinic within 1 week for wound check and suture removal. Total Time Total Time Spent Total Time Spent (In Minutes): 10 Discharge Plan Discharge Items Patient Disposition: Home - Home Health Services Reason For Visit: Abnormal Left Mammogram *HOSP SURGERY/NO LYMPH Discharge Diagnosis: left breast biopsy Activity: Per Instructions section Activity Comment: light activity for 3 weeks Lifting: No more than 25 pounds Bathing Comment: may shower starting tomorrow-04/17/19 Sexual Activity: When tolerated Exercise/Sports: Wait until after follow-up appointment Exercise Comment: light activity for 3 weeks Non-emergency contact: Primary Care Provider and Surgeon Call non-emergency contact if: you have any medication questions, your symptoms worsen, your pain is not controlled, your pain is worsening, your pain is unusual for you, you have a fever, your temperature is above 101.5, your wound has increased redness, your wound has increased drainage and your wound pain has increased Follow-up/Referrals: Dereck Petty MD, FACS [Physician] - Radu Govea MD [Primary Care Provider] - Diet: Regular Addtl Attending Provider Instructions: SPECIAL CARE INSTRUCTIONS: * Cover incisions and change daily for comfort/drainage. * May use ibuprofen for pain as tolerated. * Expect some swelling and bruising. Call your doctor if: * Temperature above 101 degrees * Pain not relieved by pain medicine ordered * There is increased drainage or redness from any incision * You have any unanswered questions or concerns [phone]. FOLLOW UP VISIT: If not already scheduled, please call the office for a follow-up visit. OFFICE PHONE NUMBER: Dr. Petty Office for next week- some suture removal Pending Studies at Discharge: Yes Studies:: pathology Stand-Alone Forms: My [employer], Opioid Pain Management, Smoking Cessation Medications and DC Order Prescriptions: New tramadol 50 mg tablet 50 - 100 mg PO Q6H PRN (Reason: pain) Qty: 20 RF: 0 Continued multivitamin [Multiple Vitamins] tablet 1 tab PO DAILY RF: 0 fluticasone furoate-vilanterol 100-25 mcg/dose blister with device 1 inh inhalation DAILY PRN (Reason: sob) Qty: 60 RF: 0 clotrimazole-betamethasone 1-0.05 % cream 1 applic topical BID PRN (Reason: as directed) Qty: 1 RF: 0 ipratropium-albuterol 20-100 mcg/actuation mist 1 puff inhalation QID PRN (Reason: sob) Qty: 4 RF: 0 diphenoxylate-atropine 2.5-0.025 mg tablet 1 tab PO Q6H PRN (Reason: Diarrhea) Qty: 30 RF: 0 aspirin 325 mg tablet 325 mg PO QPM RF: 0 ondansetron 4 mg tablet,disintegrating 4 mg PO Q8H PRN (Reason: Nausea) Qty: 30 RF: 0 anastrozole 1 mg tablet 1 mg PO QAM RF: 0 levothyroxine 175 mcg tablet 175 mcg PO QAM RF: 0 propranolol 80 mg capsule,extended release 24 hr 80 mg PO QPM RF: 0 Discharge Orders: Discharge Order (Routine); Ordered 04/17/19 Ordered By: Dereck Babcock/Other Patient Handouts: Tramadol Hydrochloride Oral tablet Admission Data Admit Date/Time: 04/16/19 14:43 Attending Provider: Dereck Petyt Admit Provider: Dereck Petty Primary Care Provider: Radu Govea Other Providers: Ayad Bonilla Other Interventions: Discharge Summary Assessment (RN) Last Done: 04/17/19 12:18 DC Date/Time DO NOT enter until pt leaves facility: 04/17/19 14:10
== END 2019-04-17 14:10 | disposition home health service (06) ==
LOC: ASU 07:37 → 3N 07:37

== ENCOUNTER 2019-06-04 06:33 | Inpatient (IN) ==
--- NOTE | 2019-06-04 07:11 | Emergency Department Note ---
Entered by Shirlene Kennedy acting as a scribe for History of Present Illness General Chief complaint: Leg Weakness, Bilateral Stated complaint: DIZZY/LIGHTHEADED Time Seen by Provider: 06/04/19 07:03 Source: patient Mode of arrival: EMS History of Present Illness Onset (ago): week(s) 5 Location: head (weakness) Severity: similar to prior episodes Pain Consistency: + other (worsening) Quality: + other (weakness) Associated symptoms: + shortness of breath, + weakness and + other (Positive fall, light headed. Negative abdominal pain, black or bloody stool, abnormal urinary symptoms. ); no chest pain, no fever/chills and no nausea/vomiting Treatments prior to arrival: none The patient is a 73 year old female presenting to the Emergency Department per EMS complaining of worsening weakness starting 5 weeks ago. The patient reports that she has been feeling weak since her lumpectomy in March 2019. She states that [employer] she slipped out of her chair and fell on her buttocks on the floor. She explains that she didnt hit her head and that she only was on the floor for a few minutes. She explains that she believes she slipped because of her weakness. She notes that her weakness isnt contained to one side of her body but that she is weak all over. She notes that she is currently light headed and has been light headed for the past few days. She adds that she is normally short of breath but that her shortness of breath is worse than usual. The patient reports that she has recurrent cystitis but doesnt believe that she has been taking antibiotics. She notes that she took no medications for her symptoms [employer]. The patient denies chest pain, nausea, vomiting, abdominal pain, black or bloody stool, fevers, chills, abnormal urinary symptoms and recent travel. Home Medications Home Medications Medication Instructions Recorded Confirmed Type ipratropium 20 mcg-albuterol 100 1 puff INHALATION HS PRN #4 gm 10/23/18 06/04/19 History mcg/actuation mist for inhalation anastrozole 1 mg tablet 1 mg PO QAM #90 tab 05/16/19 06/04/19 Rx furosemide 40 mg tablet 40 mg PO QAM 30 Days #90 tab 05/16/19 06/04/19 Rx levothyroxine 150 mcg tablet 150 mcg PO Q24H 30 Days #90 tab 05/16/19 06/04/19 Rx potassium chloride 20 mEq 20 meq PO DAILY 30 Days #90 tab 05/16/19 06/04/19 Rx tablet,extended release(part/cryst) pramipexole 0.25 mg tablet 0.25 mg PO HS 30 Days #90 tab 05/16/19 06/04/19 Rx propranolol 80 mg capsule,24 80 mg PO QPM #90 cap 05/16/19 06/04/19 Rx hr,extended release Allergies Allergy/AdvReac Type Severity Reaction Status Date / Time latex Allergy Unknown IF ON SKIN Verified 06/04/19 06:46 FOR LONG PERIOD OF TIME, SHE GETS RED,RASH,ITCH nickel Allergy Unknown contact Verified 06/04/19 06:46 dermatitis codeine AdvReac Mild GI UPSET Verified 06/04/19 06:46 Past Med/Surg History Medical History Graves disease H/O radioactive iodine thyroid ablation Hearing deficit BL BENITEZ History of breast cancer RIGHT BREAST LUMPECTOMY History of colon polyps Hypertension Morbid obesity with BMI of 60.0-69.9, adult Osteoarthritis Sleep apnea CPAP + 2 LPM OXYGEN QHS Surgical History Difficult airway for intubation H/O breast biopsy (04/16/19) Left Breast Biopsy with Needle Localization Dr. Petty 04-16-19 History of arthroscopy of left knee History of arthroscopy of right knee History of cataract surgery History of cholecystectomy History of colonoscopy History of endometrial biopsy History of esophagogastroduodenoscopy (EGD) History of hysteroscopy History of lumpectomy of right breast History of tonsillectomy History of tubal ligation Family History Mother Cardiac disorder Aunt Difficult intubation Social History Preferred Language: [place] Communication Ability: Effective Combat Systems Officer Required: No Beliefs That Will Affect Care: None marital status: Current Living Situation: Spouse Other Information That Helps Us Care for You: No Feels Safe at Home: Yes Safety Concerns: Feels Safe At This Time Smoking Status: Never smoker Second Hand Exposure: Yes ( A CHILD) ; Hx Alcohol Use: No Hx Substance Use: No Review of Systems See HPI for pertinent positives & negatives. and A total of 10 systems reviewed and were otherwise negative Physical Exam Vital Signs Vital Signs - 24 hr 06/04/19 06:49 06/04/19 08:44 06/04/19 09:00 Temperature 36.9 C Temperature Source Oral Pulse Rate 77 75 Pulse Rate [Left Finger] 74 Pulse Rate from SpO2 Sensor 75 Pulse Rhythm Regular Pulse Strength Normal Respiratory Rate 19 26 H 24 Respiratory Effort / Characteristics Non-Labored Respiratory Depth Normal Respiratory Pattern Regular Blood Pressure 110/94 91/67 L Blood Pressure [Left Arm] 91/45 L Blood Pressure Mean 99 77 Blood Pressure Mean [Left Arm] 60 Pulse Oximetry 95 93 95 Oxygen Delivery Method Room Air Room Air Room Air Sepsis Recent Fever Within 48 Hours No Sepsis New/Unexplained Change in Mental Status No Sepsis Action Taken by Nursing No Action Required 06/04/19 10:00 Temperature Temperature Source Pulse Rate Pulse Rate [Left Finger] Pulse Rate from SpO2 Sensor 78 Pulse Rhythm Pulse Strength Respiratory Rate 25 H Respiratory Effort / Characteristics Respiratory Depth Respiratory Pattern Blood Pressure Blood Pressure [Left Arm] Blood Pressure Mean Blood Pressure Mean [Left Arm] Pulse Oximetry 95 Oxygen Delivery Method Room Air Sepsis Recent Fever Within 48 Hours Sepsis New/Unexplained Change in Mental Status Sepsis Action Taken by Nursing General: Non-ill appearing older female in no acute distress. HEENT: Normal cephalic atraumatic. Pupils are equal round and reactive to light. Extraocular movements are intact. Oropharynx is pink with moist mucous membranes. No swelling of the mouth lips or tongue. Neck: Supple with a midline trachea. No meningeal signs or stiffness, no JVD or bruits. No Stridor. Chest: Clear to auscultation bilaterally. No wheezes or rhonchi. No increased work of breathing. Heart: regular rate and rhythm. Abdomen: Soft nontender, nondistended without rebound guarding or rigidity. Extremities: Trace to 1+ bilateral lower extremity edema. No calf tenderness or asymmetry Spine/Back. Non tender to palpation. No CVA tenderness Skin: Good turgor without rashes. Neurologic exam: Cranial nerves two through 12 are intact. Motor and sensation are intact and symmetrical throughout. Course Course 0653: The patient was evaluated in room C6, and a complete history and physical examination were performed. 0838: I discussed the patient's case with Dr. Bonilla - [facility] [place] hospitalist. He will evaluate the patient for further management. 0842: I updated the patient at this time. Administered Medications Anastrozole (Arimidex) 1 mg PO QAM MICHAEL Stop: 07/04/19 12:59 Last Admin: 06/04/19 14:18 Dose: 1 mg Documented by: [id number] Cosigned by: [id number] Levothyroxine Sodium (Synthroid) 150 mcg PO DAILYBB MICHAEL Stop: 07/04/19 12:59 Last Admin: 06/04/19 14:17 Dose: 150 mcg Documented by: [id number] Potassium Chloride (Klor-Con M20) 20 meq PO DAILY MICHAEL Stop: 07/04/19 12:59 Last Admin: 06/04/19 14:18 Dose: 20 meq Documented by: [id number] Discontinued Medications Albuterol (Duoneb) 3 ml NEB NOW STA Stop: 06/04/19 12:27 Last Admin: 06/04/19 12:40 Dose: 3 ml Documented by: [id number] Furosemide (Lasix) 40 mg IV DAILY ONE Stop: 06/04/19 12:20 Last Admin: 06/04/19 14:30 Dose: 40 mg Documented by: [id number] Furosemide 40 mg/ Syringe 4 mls @ 4 mls/min IV ONE ONE Stop: 06/04/19 12:46 Last Admin: 06/04/19 14:17 Dose: 4 mls/min Documented by: [id number] Miscellaneous (Patient's Height And/Or Weight Needed) 1 ea N/A Q30M MICHAEL Stop: 07/04/19 12:29 Last Admin: 06/04/19 14:18 Dose: 1 ea Documented by: [id number] Medical Decision Making Differential Diagnosis Differential diagnoses include electrolyte or metabolic abnormality, anemia, CHF, cardiac disease, neurologic disease and UTI amongst others. Medical Records Attestation: I reviewed the patient's medical records. Home Medications Current Medication List: was personally reviewed by me Laboratory Data Attestation: I reviewed the patient's lab results. Result diagrams: 06/04/19 07:03 06/04/19 07:03 Lab Results 06/04/19 06/04/19 06/04/19 Range/Units 07:03 07:03 08:30 WBC 17.58 H (4.8-10.8) K/uL RBC 4.14 L (4.2-5.4) M/uL Hgb 11.7 L (12.0-16.0) g/dL Hct 36.5 L (37-47) % MCV 88.2 (80-100) fL MCH 28.3 (25-34) pg MCHC 32.1 (32-36) g/dL RDW Std Deviation 44.4 (36.4-46.3) fL RDW Coeff of Farrukh 13.7 (11.5-14.5) % Plt Count 366 (130-400) K/uL MPV 10.0 (7.4-10.4) fL Immature Gran % (Auto) 0.7 % Neut % (Auto) 63.9 % Lymph % (Auto) 18.3 % [place] % (Auto) 14.0 % Eos % (Auto) 2.8 % Baso % (Auto) 0.3 % Immature Gran # (Auto) 0.12 H (0.00-0.02) K/uL Neut # (Auto) 11.24 H (1.4-6.5) K/uL Lymph # (Auto) 3.21 (1.2-3.4) K/uL [place] # (Auto) 2.46 H (0.11-0.59) K/uL Eos # (Auto) 0.49 (0-0.5) K/uL Baso # (Auto) 0.06 (0-0.2) K/uL Absolute Nucleated RBC 0.00 (0-0) K/uL Nucleated RBC % (auto) 0.0 % Sodium 136 (136-145) mmol/L Potassium 3.5 (3.5-5.1) mmol/L Chloride 96 L (98-107) mmol/L Carbon Dioxide 33 H (21-32) mmol/L Anion Gap 7.0 (3-11) BUN 9 (7-18) mg/dl Creatinine 0.94 (0.6-1.2) mg/dl Est Cr Clr Drug Dosing Not Reportable Est GFR ( Amer) 68.8 Est GFR (Non-Af Amer) 59.3 BUN/Creatinine Ratio 9.8 L (10-20) Glucose 91 (70-99) mg/dl Calcium 9.4 (8.5-10.1) mg/dl Magnesium 2.0 (1.8-2.4) mg/dl Total Bilirubin 0.5 (0.2-1) mg/dl AST 14 L (15-37) U/L ALT 13 (12-78) U/L Alkaline Phosphatase 91 (45-117) U/L Total Protein 7.3 (6.4-8.2) gm/dl Albumin 2.8 L (3.4-5.0) gm/dl Globulin 4.5 H (2.5-4.0) gm/dl Albumin/Globulin Ratio 0.6 L (0.9-2) TSH 0.303 (0.300-4.500) uIu/ml Urine Color Yellow Urine Appearance Clear (Clear) Urine pH 6.5 (4.5-7.5) Ur Specific [place] 1.009 (1.000-1.030) Urine Protein Negative (Negative) Urine Glucose (UA) Negative (Negative) Urine Ketones Negative (Negative) Urine Blood Negative (Negative) Urine Nitrite Negative (Negative) Urine Bilirubin Negative (Negative) Urine Urobilinogen Negative (Negative) Ur Leukocyte Esterase Negative (Negative) Imaging Data Radiologist's Impression: Radiology results as stated below per my review and the radiologist's interpretation: CT head/brain wo con CT DOSE: 614.27 mGy.cm HISTORY: Mental status change weakness and dizzy TECHNIQUE: Multiaxial CT images of the head were performed without the use of intravenous contrast. A dose lowering technique was utilized adhering to the principles of ALARA. Comparison: None. Findings: The paranasal sinuses and mastoid air cells are clear. The calvarium and skull base are intact. The ventricles and sulci are within normal limits. There is no mass, hematoma, midline shift, or acute infarct. Impression: No acute intracranial abnormality. Age-related atrophy and chronic small vessel change. ACT 112: Negative or not required by law. The above report was generated using voice recognition software. It may contain grammatical, syntax or spelling errors. Electronically signed by: Junior Michel M.D. 06/04/2019 7:37 AM XR chest 1V portable CLINICAL HISTORY: 73 years-old Female presenting with weakness. TECHNIQUE: Portable upright AP view of the chest was obtained. COMPARISON: 04/23/2019 and chest CTA from 04/24/2019. FINDINGS: Image quality degraded by patient body habitus and portable technique. Atherosclerosis of the thoracic aorta with prominence along the proximal descending portion likely relating to the underlying aneurysmal dilatation. Cardiac silhouette enlarged. Pulmonary vascular prominence and interstitial prominence persists. Aeration at the left lung base may be slightly improved from prior. No large effusion or pneumothorax. Osseous structures normal. IMPRESSION: 1. Cardiomegaly with volume overload and congestive change. No claire pulmonary edema allowing for image quality. 2. Thoracic aortic aneurysm better appreciated on recent CT. 3. Slightly improved aeration of the left lung base. ACT 112: Negative or not required by law. Electronically signed by: Narendra Pemberton M.D. 06/04/2019 7:55 AM ECG Data Attestation: I personally reviewed and interpreted this ECG as follows: Indication: + weakness Rate (beats per minute): 76 Rhythm: + normal sinus ECG Findings: + Other (No acute ischemia. ); no PACs and no PVCs Comparison ECG Date: from (04/24/2019) Change: no significant change Blood Pressure Blood Pressure Findings: Elevated blood pressure Blood Pressure Disposition: further management by hospitalist DENIA Narrative Cardiac Monitoring: An order was placed for continuous cardiac monitoring. The monitor shows a rate of 77 with sinus rhythm. This patient comes in as described above. She was placed in room C6. She is here for treatment evaluation of generalized weakness and dizziness. She said she felt weak and fell today there is no injury. She has no focal neurologic deficit she looks well. She has some nonspecific complaints. No chest pain or shortness of breath. No fever or chills or any recent infectious sounding symptoms. No headache or head trauma. No difficulty speaking or swallowing. Denies urinary symptoms. No blood or melanotic stool. IV access was established. I did a CAT scan of her head as well as a chest x-ray, multiple blood tests,and urinalysis and culture were obtained. She was reassessed frequently. I reviewed the old records. CAT scan of her head is unremarkable. Chest x-ray may have some mild congestive changes. EKG does not suggest ischemic changes. She has elevated white count however she is chronically elevated and unchanged at 17. She has no acute electrolyte or metabolic abnormalities. She is not significantly anemic. Urinalysis is pending. I did discuss the case with the hospitalist. She is a week and does not feel she can go home and I think it is reasonable to keep her for observation and further evaluation. Impression & Plan Weakness, Shortness of breath, Elevated WBC count, Dizziness Discharge Plan Visit Data *Final* Discharge Date/Time: 06/04/19 11:25 Chief Complaint: Leg Weakness, Bilateral Stated Complaint: DIZZY/LIGHTHEADED ED Provider: Romario Clark Discharge Problem: Weakness, Shortness of breath, Elevated WBC count, Dizziness Patient Disposition: Admitted As Inpatient Discharge Instructions Interventions: ED Discharge Assessment Last Done: 06/04/19 11:25 Discharge Problem: Elevated WBC count Qualifiers: Leukocytosis type: unspecified Qualified Code(s): D72.829 - Elevated white blood cell count, unspecified The scribe's documentation has been prepared under my direction and personally reviewed by me in its entirety. I confirm that the note above accurately reflects all work, treatment, procedures, and medical decision making performed by me.
[2019-06-04 07:23] LABS: Basophils # (auto) 0.06 K/uL (0-0.2); Basophils % (auto) 0.3 %; Eosinophils # (auto) 0.49 K/uL (0-0.5); Eosinophils % (auto) 2.8 %; Hematocrit (blood only) 36.5 % (37-47); Hemoglobin 11.7 g/dL (12.0-16.0); Immature Granulocytes # (auto) 0.12 K/uL (0.00-0.02); Immature Granulocytes % (auto) 0.7 %; Lymphocytes # (auto) 3.21 K/uL (1.2-3.4); Lymphocytes % (auto) 18.3 %; Mean Corpuscular Hemoglobin 28.3 pg (25-34); Mean Corpuscular Hgb Conc 32.1 g/dL (32-36); Mean Corpuscular Volume 88.2 fL (80-100); Monocytes # (auto) 2.46 K/uL (0.11-0.59); Neutrophils # (auto) 11.24 K/uL (1.4-6.5); Neutrophils % (auto) 63.9 %; Platelet Count 366 K/uL (130-400); RDW Coefficient of Variation 13.7 % (11.5-14.5); RDW Standard Deviation 44.4 fL (36.4-46.3); Red Blood Count 4.14 M/uL (4.2-5.4); White Blood Count 17.58 K/uL (4.8-10.8)
[2019-06-04 07:30] LABS: Alanine Aminotransferase 13 U/L (12-78); Albumin Level 2.8 gm/dl (3.4-5.0); Aspartate Aminotransferase 14 U/L (15-37); BUN Creatinine Ratio 9.8 (10-20); Blood Urea Nitrogen 9 mg/dl (7-18); Calcium 9.4 mg/dl (8.5-10.1); Carbon Dioxide 33 mmol/L (21-32); Chloride 96 mmol/L (98-107); Est GFR (African American) 68.8; Est GFR (Non-African American) 59.3; Glucose 91 mg/dl (70-99); Potassium 3.5 mmol/L (3.5-5.1); Sodium 136 mmol/L (136-145)
--- NOTE | 2019-06-04 07:38 | CT Scan Report ---
CT head/brain wo con CT DOSE: 614.27 mGy.cm HISTORY: Mental status change weakness and dizzy TECHNIQUE: Multiaxial CT images of the head were performed without the use of intravenous contrast. A dose lowering technique was utilized adhering to the principles of ALARA. Comparison: None. Findings: The paranasal sinuses and mastoid air cells are clear. The calvarium and skull base are int act. The ventricles and sulci are within normal limits. There is no mass, hematoma, midline shift, or acute infarct. Impression: No acute intracranial abnormality. Age-related atrophy and chronic small vessel change. ACT 112: Negative or not required by law. The above report was generated using voice recognition software. It may contain grammatical, syntax or spelling errors. Electronically signed by: Junior Michel M.D. 06/04/2019 7:37 AM
[2019-06-04 07:41] LABS: Albumin Globulin Ratio 0.6 (0.9-2); Alkaline Phosphatase 91 U/L (45-117); Bilirubin,Total 0.5 mg/dl (0.2-1); Globulin 4.5 gm/dl (2.5-4.0); Thyroid Stimulating Hormone 0.303 uIu/ml (0.300-4.500); Total Protein 7.3 gm/dl (6.4-8.2)
--- NOTE | 2019-06-04 07:56 | XRay Report ---
XR chest 1V portable CLINICAL HISTORY: 73 years-old Female presenting with weakness. TECHNIQUE: Portable upright AP view of the chest was obtained. COMPARISON: 04/23/2019 and chest CTA from 04/24/2019. FINDINGS: Image quality degraded by patient body habitus and portable technique. Atherosclerosis of the thoracic aorta with prominence along the proximal descending portion likely re lating to the underlying aneurysmal dilatation. Cardiac silhouette enlarged. Pulmonary vascular promi nence and interstitial prominence persists. Aeration at the left lung base may be slightly improved f rom prior. No large effusion or pneumothorax. Osseous structures normal. IMPRESSION: 1. Cardiomegaly with volume overload and congestive change. No claire pulmonary edema allowing for im age quality. 2. Thoracic aortic aneurysm better appreciated on recent CT. 3. Slightly improved aeration of the left lung base. ACT 112: Negative or not required by law. Electronically signed by: Narendra Pemberton M.D. 06/04/2019 7:55 AM
[2019-06-04 09:15] LABS: Appearance Urine Clear (Clear); Bilirubin Urine Negative (Negative); Blood Urine Negative (Negative); Color Urine Yellow; Glucose Urine UA Negative (Negative); Ketones Urine Negative (Negative); Leukocyte Esterase Urine Negative (Negative); Nitrite Urine Negative (Negative); Protein Urine Negative (Negative); Specific Gravity Urine 1.009 (1.000-1.030); Urobilinogen Urine Negative (Negative); pH Urine 6.5 (4.5-7.5)
--- NOTE | 2019-06-04 10:13 | History & Physical Report ---
Date of Service June 04, 2019 Assessment & Plan (1) Diastolic congestive heart failure: Given symptoms, weight gain, and CXR, am considering this an acute exacerbation of chronic diastolic heart failure. Likely due to increased salt intake and incomplete usage of her Lasix. pCXR notable for some volume overload and congestive change without evidence of claire pulmonary edema. - Start Lasix 40 mg IV daily - Monitor weights, I&Os - CHF referral (2) Physical deconditioning: Deconditioning due to medical illness and obesity. - PT/OT (3) Graves disease: Admission TSH was 0.303. Chart indicates she had a radioactive iodine ablation. - Continue levothyroxine and propranolol - Unclear if she needs the propranolol if she no longer has a thyroid - Repeat TSH, FT4, and T3 in the morning (4) Hypertension: Patient says she is not on any dedicated medications for this; however, her BP was as high as 175/110 during her prior admission. BP is presently 90/70. - Continue beta-clementine, but will put in hold parameters for low BP. (5) Obstructive sleep apnea of adult: - Continue night-time CPAP. (6) Leukocytosis: Reportedly was seen by hematology for this previously. No focal indications of infection. - No inpatient needs. (7) Anemia: Admit hemoglobin 11.7, similar to previous values. MCV 88. Iron labs from 03/2019 indicate iron deficiency and anemia of chronic disease. - Monitor (8) Breast cancer, right: On anastrozole. (9) Thoracic aortic aneurysm: Mentioned on pCXR and described on 24Apr2019 CTA chest. - Monitor outpatient (10) Restless leg syndrome: On pramipexole. (11) DVT prophylaxis: Lovenox 40 mg SQ Q12h - Higher dose due to her BMI. History of Present Illness Primary Care Provider: Radu Govea MD 73-year-old female presents for further evaluation of a generalized feeling of fatigue, "dizziness", lightheadedness, and most recently this morning a mechanical fall. - This morning, patient says she was walking up some steps to get into her bed when she accidentally slipped, fell, and landed on her bottom. She denies any head trauma, loss of consciousness, headache, or vomiting. She thinks that those steps into her bed are just simply not adequate anymore for her. - In general, she says that she just feels unwell. She denies any known fevers or focal illness. However, she says she feels a vague dizziness, lightheadedn ess, and not like her normal self ever since her hospital discharge on May 01. She wonders if it is related to starting on Lasix. She says that she went to rehab for about a week after her last hospital discharge and overall really disliked it. - Regarding her previous diagnosis of diastolic heart failure, patient says she is not sure exactly how to keep track of this. She asks lots of questions about overall fluid status and how she knows if she has some fluid overload. She says that she had an appointment with her PCP, Dr. Govea, on hospital discharge but ended up canceling it because she just generally felt unwell. - Past medical history includes hypertension, morbid obesity, sleep apnea, Graves' disease, right breast cancer, congested heart failure with preserved EF, restless leg syndrome, cutaneous candidiasis, hearing loss, thoracic aortic aneurysm, anemia, chronic leukocytosis - Past surgical history includes right breast lumpectomy, hysterectomy, cataract surgery, cholecystectomy, tonsillectomy, - Social history includes denying any tobacco use, alcohol use. Lives at home with . PCP is Dr. Govea. Allergies Allergy/AdvReac Type Severity Reaction Status Date / Time latex Allergy Unknown IF ON SKIN Verified 06/04/19 06:46 FOR LONG PERIOD OF TIME, SHE GETS RED,RASH,ITCH nickel Allergy Unknown contact Verified 06/04/19 06:46 dermatitis codeine AdvReac Mild GI UPSET Verified 06/04/19 06:46 Home Medications Home Medications Medication Instructions Recorded Confirmed Type ipratropium 20 mcg-albuterol 100 1 puff INHALATION HS PRN #4 gm 10/23/18 06/04/19 History mcg/actuation mist for inhalation anastrozole 1 mg tablet 1 mg PO QAM #90 tab 05/16/19 06/04/19 Rx furosemide 40 mg tablet 40 mg PO QAM 30 Days #90 tab 05/16/19 06/04/19 Rx levothyroxine 150 mcg tablet 150 mcg PO Q24H 30 Days #90 tab 05/16/19 06/04/19 Rx potassium chloride 20 mEq 20 meq PO DAILY 30 Days #90 tab 05/16/19 06/04/19 Rx tablet,extended release(part/cryst) pramipexole 0.25 mg tablet 0.25 mg PO HS 30 Days #90 tab 05/16/19 06/04/19 Rx propranolol 80 mg capsule,24 80 mg PO QPM #90 cap 05/16/19 06/04/19 Rx hr,extended release Past Med/Surg History Medical History Graves disease H/O radioactive iodine thyroid ablation Hearing deficit BL BENITEZ History of breast cancer RIGHT BREAST LUMPECTOMY History of colon polyps Hypertension Morbid obesity with BMI of 60.0-69.9, adult Osteoarthritis Sleep apnea CPAP + 2 LPM OXYGEN QHS Surgical History Difficult airway for intubation H/O breast biopsy (04/16/19) Left Breast Biopsy with Needle Localization Dr. Petty 04-16-19 History of arthroscopy of left knee History of arthroscopy of right knee History of cataract surgery History of cholecystectomy History of colonoscopy History of endometrial biopsy History of esophagogastroduodenoscopy (EGD) History of hysteroscopy History of lumpectomy of right breast History of tonsillectomy History of tubal ligation Family History Mother Cardiac disorder Aunt Difficult intubation Social History Preferred Language: Spanish Communication Ability: Effective Bed Teacher Required: No Beliefs That Will Affect Care: None marital status: Current Living Situation: Spouse Other Information That Helps Us Care for You: No Feels Safe at Home: Yes Safety Concerns: Feels Safe At This Time Smoking Status: Never smoker Second Hand Exposure: Yes ( A CHILD) ; Hx Alcohol Use: No Hx Substance Use: No Review of Systems Review of Systems: Constitutional: Denies fevers, chills, focal weakness Eyes: Denies any visual loss or diplopia ENT: Denies any ear/nose/throat pain or difficulty speaking or swallowing Respiratory: Denies any dyspnea, cough, hemoptysis Cardiovascular: Denies any chest pain or feeling of edema Gastrointestinal: Denies any abdominal pain, nausea/vomiting/diarrhea Musculoskeletal: Denies any acute extremity pains, myalgias, or focal weakness Skin: Denies any known acute rashes or lesions Neuro: Denies any headache, acute focal weakness or numbness, or difficulties with speech or swallow. Psych: Denies any recent depression or anxiety Endocrine: Denies any heat or cold intolerance, changes in urination. Hematologic: Denies any easy bleeding or bruising Physical Exam Physical Exam: GENERAL: Awake, alert, well-appearing, speaking easily in full sentences, in no acute distress. HENT: Normocephalic, atraumatic. Oropharynx unremarkable. EYES: Normal conjunctiva. Sclera non-icteric. NECK: Inspection normal. Supple and full ROM. No nuchal rigidity. CARDIAC: +S1S2 RRR, no murmurs. RESPIRATORY: Clear to auscultation. No wheezes or rales. Mild tachypnea and breathes with pursed lips. GI: +BS, soft, non-distended. No tenderness to palpation. No rebound or guarding. Morbidly obese. EXTREMITIES: No pedal edema or calf tenderness. Moving all extremities naturally and easily. NEURO: No gross neuro deficits. Results & Data Vital Signs (Past 12 Hours) Vital Signs Temp Pulse Pulse Resp BP BP Pulse Ox 06/04/19 08:44 74 26 H 91/45 L 93 06/04/19 06:49 36.9 C 77 19 110/94 95 Laboratory Results 06/04/19 06/04/19 06/04/19 Range/Units 08:30 07:03 07:03 WBC 17.58 H (4.8-10.8) K/uL RBC 4.14 L (4.2-5.4) M/uL Hgb 11.7 L (12.0-16.0) g/dL Hct 36.5 L (37-47) % MCV 88.2 (80-100) fL MCH 28.3 (25-34) pg MCHC 32.1 (32-36) g/dL RDW Std Deviation 44.4 (36.4-46.3) fL RDW Coeff of Farrukh 13.7 (11.5-14.5) % Plt Count 366 (130-400) K/uL MPV 10.0 (7.4-10.4) fL Immature Gran % (Auto) 0.7 % Neut % (Auto) 63.9 % Lymph % (Auto) 18.3 % Victoria % (Auto) 14.0 % Eos % (Auto) 2.8 % Baso % (Auto) 0.3 % Immature Gran # (Auto) 0.12 H (0.00-0.02) K/uL Neut # (Auto) 11.24 H (1.4-6.5) K/uL Lymph # (Auto) 3.21 (1.2-3.4) K/uL Victoria # (Auto) 2.46 H (0.11-0.59) K/uL Eos # (Auto) 0.49 (0-0.5) K/uL Baso # (Auto) 0.06 (0-0.2) K/uL Absolute Nucleated RBC 0.00 (0-0) K/uL Nucleated RBC % (auto) 0.0 % Sodium 136 (136-145) mmol/L Potassium 3.5 (3.5-5.1) mmol/L Chloride 96 L (98-107) mmol/L Carbon Dioxide 33 H (21-32) mmol/L Anion Gap 7.0 (3-11) BUN 9 (7-18) mg/dl Creatinine 0.94 (0.6-1.2) mg/dl Est Cr Clr Drug Dosing Not Reportable Est GFR ( Amer) 68.8 Est GFR (Non-Af Amer) 59.3 BUN/Creatinine Ratio 9.8 L (10-20) Glucose 91 (70-99) mg/dl Calcium 9.4 (8.5-10.1) mg/dl Magnesium 2.0 (1.8-2.4) mg/dl Total Bilirubin 0.5 (0.2-1) mg/dl AST 14 L (15-37) U/L ALT 13 (12-78) U/L Alkaline Phosphatase 91 (45-117) U/L Total Protein 7.3 (6.4-8.2) gm/dl Albumin 2.8 L (3.4-5.0) gm/dl Globulin 4.5 H (2.5-4.0) gm/dl Albumin/Globulin Ratio 0.6 L (0.9-2) TSH 0.303 (0.300-4.500) uIu/ml Urine Color Yellow Urine Appearance Clear (Clear) Urine pH 6.5 (4.5-7.5) Ur Specific Sinclair 1.009 (1.000-1.030) Urine Protein Negative (Negative) Urine Glucose (UA) Negative (Negative) Urine Ketones Negative (Negative) Urine Blood Negative (Negative) Urine Nitrite Negative (Negative) Urine Bilirubin Negative (Negative) Urine Urobilinogen Negative (Negative) Ur Leukocyte Esterase Negative (Negative) Code Status & VTE Plan Code Status Full code VTE Prophylaxis Plan VTE Prophylaxis will be ordered: Yes Supervising Physician Co-Signing Physician Notes I supervised Gt Brooks MD on this patient's care. I examined the patient today independently of him. I discussed the plan of care with him with the plan being as written in his note except for any following changes/exceptions: None. 73yo F w/ recent admission for diastolic heart failure who presents with increased shortness of breath and weight gain. Overall, she reports she has taken her Lasix most days, but feels like she does not understand how/when to use it. On admission, she is up about 10 kg from her prior discharge. Will diurese and get CHF consult as she clearly will need additional resources to prevent fluid re-accumulation. Resident Activity Tracking Resident Involvement: Resident Care Provided Care Provided: Adult Hospital Medicine
[2019-06-04] MEDS ORDERED: ALBUT/IPRATROP 3MG/0.5MG NEB 3 ML VIAL NEB PRN (12:19)
[2019-06-04] MEDS ORDERED: FUROSEMIDE 40 MG/4 ML VIAL IV ONE (12:19)
[2019-06-04] MEDS ORDERED: ALBUT/IPRATROP 3MG/0.5MG NEB 3 ML VIAL NEB STA (12:26)
[2019-06-04] MEDS ORDERED: FUROSEMIDE 40 MG in SYRINGE 0 ML IV ONE (12:45)
[2019-06-04] MEDS: LEVOTHYROXINE SODIUM 150 MCG TABLET PO SCH (14:17)
[2019-06-04] MEDS: POTASSIUM CHLORIDE 20 MEQ TABCR PO SCH (14:18)
[2019-06-04] MEDS: PATIENT'S HEIGHT AND/OR WEIGHT NEEDED SCH ×2 (14:18→20:48)
[2019-06-04] MEDS: ANASTROZOLE 1 MG TAB PO SCH (14:18)
--- NOTE | 2019-06-04 14:50 | Billing Data ---
Date of Service June 04, 2019 Coding Level of Care Code 61912 OBS Care - Level 3
--- NOTE | 2019-06-04 15:29 | Electrocardiogram Report ---
Test Reason : Blood Pressure : / mmHG Vent. Rate : 076 BPM Atrial Rate : 076 BPM P-R Int : 186 ms QRS Dur : 090 ms QT Int : 396 ms P-R-T Axes : 055 -23 039 degrees QTc Int : 445 ms Normal sinus rhythm Normal ECG When compared with ECG of 24-APR-2019 10:15, Nonspecific T wave abnormality no longer evident in Lateral leads Confirmed by Ramiro Gomez ([id number]) on 06/04/2019 3:28:45 PM Referred By: REFERRED SELF Confirmed By:Ramiro Gomez
[2019-06-04] MEDS: ACETAMINOPHEN 325 MG TAB PO PRN (17:07)
[2019-06-04] MEDS: PROPRANOLOL HCL LA 80 MG CAPCR PO SCH (20:06)
[2019-06-04] MEDS: ENOXAPARIN INJ 40 MG/0.4 ML SYR SQ SCH (20:06)
[2019-06-04] MEDS: PRAMIPEXOLE DIHYDROCHLO 0.25 MG TAB PO SCH (20:10)
[2019-06-05] MEDS: LEVOTHYROXINE SODIUM 150 MCG TABLET PO SCH (06:17)
[2019-06-05] MEDS: PATIENT'S HEIGHT AND/OR WEIGHT NEEDED SCH ×4 (06:44→07:10)
[2019-06-05 07:07] LABS: Hematocrit (blood only) 34.6 % (37-47); Hemoglobin 11.2 g/dL (12.0-16.0); Mean Corpuscular Hemoglobin 28.1 pg (25-34); Mean Corpuscular Hgb Conc 32.4 g/dL (32-36); Mean Corpuscular Volume 86.9 fL (80-100); Mean Platelet Volume 9.3 fL (7.4-10.4); Platelet Count 309 K/uL (130-400); RDW Coefficient of Variation 13.6 % (11.5-14.5); RDW Standard Deviation 43.9 fL (36.4-46.3); Red Blood Count 3.98 M/uL (4.2-5.4); White Blood Count 13.86 K/uL (4.8-10.8)
[2019-06-05 07:47] LABS: BUN Creatinine Ratio 8.7 (10-20); Creatinine Clr Calc Pharmacy 95.8 ml/min; Est GFR (African American) 74.5; Est GFR (Non-African American) 64.3; Magnesium 1.9 mg/dl (1.8-2.4); Potassium 2.9 mmol/L (3.5-5.1)
[2019-06-05 07:59] LABS: T4 Free Thyroxine 1.6 ng/dl (0.8-1.6); Thyroid Stimulating Hormone 0.23 uIu/ml (0.300-4.500)
[2019-06-05] MEDS: ANASTROZOLE 1 MG TAB PO SCH (08:22)
[2019-06-05] MEDS: POTASSIUM CHLORIDE 20 MEQ TABCR PO SCH (08:22)
[2019-06-05] MEDS ORDERED: FUROSEMIDE 40 MG in SYRINGE 0 ML IV SCH ×2 (09:00→17:00)
[2019-06-05] MEDS: ENOXAPARIN INJ 40 MG/0.4 ML SYR SQ SCH ×2 (09:41→20:59)
[2019-06-05] MEDS ORDERED: MAGNESIUM SULFATE / D5W 1 GM/100 ML BAG IV ONE (10:39)
[2019-06-05] MEDS ORDERED: POTASSIUM CHLORIDE 20 MEQ TABCR PO STA ×2 (10:39→18:33)
--- NOTE | 2019-06-05 13:01 | Hospitalist Progress Note ---
Date of Service June 05, 2019 Assessment & Plan (1) Diastolic congestive heart failure: Given symptoms, weight gain, and CXR, am considering this an acute exacerbation of chronic diastolic heart failure. Likely due to increased salt intake and incomplete usage of her Lasix. pCXR notable for some volume overload and congestive change without evidence of claire pulmonary edema. - having side effects of nausea, dizziness since starting lasix last admission -change to Bumex 1mg IV bid and see if less side effects -replace lytes as needed, follow BMP - Monitor weights, I&Os, change ot low Na+ diet and fluid restrict to 1500mL - CHF clinic referral appreciated (2) Physical deconditioning: Deconditioning due to medical illness and obesity. - PT/OT (3) Graves disease: Admission TSH was 0.303. Chart indicates she had a radioactive iodine ablation. - Continue levothyroxine and propranolol which is likely now for HTN TSH mildly low, F4 normal, FT3 low (4) Hypertension: Patient says she is not on any dedicated medications for this; however, her BP was as high as 175/110 during her prior admission. BPs controlled - Continue beta-clementine,with hold parameters for low BP. (5) Obstructive sleep apnea of adult: - Continue night-time CPAP. (6) Leukocytosis: Reportedly was seen by hematology for this previously. No focal indications of infection. Has been elevated for many years, with neutrophilia Seen by Mathew Whitman as per previous reports - No inpatient needs. (7) Anemia: Admit hemoglobin 11.7 and now 11.2, similar to previous values. MCV 88. Iron labs from 03/2019 indicate iron deficiency and anemia of chronic disease. - Monitor (8) Breast cancer, right: On anastrozole. (9) Thoracic aortic aneurysm: Mentioned on pCXR and described on 24Apr2019 CTA chest ascending and descending, 4.4cm - Monitor outpatient (10) Restless leg syndrome: On pramipexole. (11) Nausea: possibly related to lasix? -switching to bumex and will see if improves (12) Lightheaded: possibly side effect of lasix? check orthostatics changing to bumex (13) Rash: possibly due to contact derm from bed? She does lay around in bed almost all day long also could be from lasix? -changing ot bumex -apply hydrocortisone cream bid (14) Hypokalemia: secondary to lasix -replace and repeat labs later (15) DVT prophylaxis: Lovenox 40 mg SQ Q12h - Higher dose due to her BMI. Dispo-continued stay for diuresis Admission and Anticipated Discharge Date Admission Date: June 04, 2019 Subjective Pt reports feeling poorly, but cannot exactly say what is going on. Has felt lightheaded since being on lasix last admission. Feels low appetite. Was confused about what to eat and how much fluid to dirnk. Feels her mouth is dry since getting IV lasix. Denies chest pain. has been itchy on her back Review of Systems Review of Systems: All systems reviewed & are unremarkable except as noted in HPI & below Physical Exam Constitutional: WD/WN, vitals as above + morbidly obese Eyes: + anicteric sclerae ENMT: external ear and nose normal, oropharynx normal Neck: trachea midline, no thyromegaly Respiratory: normal respiratory effort, lungs clear to auscultation Cardiovascular: RRR, no murmur, no edema Chest (Breasts): Chest: normal inspection of chest Gastrointestinal (Abdomen): normal bowel sounds, soft, nontender, no hepatosplenomegaly (morbidly obese) Musculoskeletal: Extremities: extremities normal to inspection; no cyanosis and no clubbing Skin: + rash (back with diffuse mild erythematous papular rash) Neurologic: moves all extremities and awake; no focal motor deficits Psychiatric: Orientation: alert and oriented x 3 Affect: + flat affect Genitourinary: Patton in place with clear yellow urine Lymphatic: no lymphedema Results & Data ([facility]) Vital Signs (Past 12 Hours) Vital Signs Temp Pulse Pulse Resp BP Pulse Ox 06/05/19 07:15 37.0 C 71 18 150/79 H 95 06/05/19 03:04 36.4 C L 71 18 125/62 94 06/05/19 01:15 72 18 94 Laboratory Results labs reviewed PG Care Time/CCT Total # of Minutes Spent Total Time Spent with Patient: Total time spent is greater than 50% in coordination of care (as documented) at patient's floor/unit and/or counseling patient: Coding Level of Care Code 44105 Subseq Hosp Care Lvl 3 Diagnoses Diastolic congestive heart failure I50.30 Physical deconditioning R53.81 Graves disease E05.00 Hypertension I10 Obstructive sleep apnea of adult G47.33 Leukocytosis D72.829 Anemia D64.9 Breast cancer, right C50.911 Thoracic aortic aneurysm I71.2 Restless leg syndrome G25.81 Nausea R11.0 Lightheaded R42 Rash R21 Hypokalemia E87.6 DVT prophylaxis Z29.9
[2019-06-05] MEDS: HYDROCORTISONE 1% CRM 30 GM TUBE EXT SCH ×2 (14:23→21:01)
--- NOTE | 2019-06-05 15:22 | Heart Failure Consultation ---
Date of Consultation June 05, 2019 Assessment & Plan (1) Hypervolemia: (2) Morbid obesity: (3) Obstructive sleep apnea of adult: (4) Hypokalemia: (5) Anxiety: (6) Dyspnea: Patient presents with weakness and progressive dyspnea. Until her March admission, patient had no prior history of congestive heart failure. Her dyspnea is quite chronic but she states it has been more severe in recent weeks. She denies other heart failure symptoms including worsening edema or orthopnea. She has a difficult exam due to her body habitus but she does not appear significantly hypervolemic on exam. Her symptoms are likely multi-factorial including morbid obesity, deconditioning, severe hypoventilation syndrome/OLGA, anxiety, and possibly diastolic heart failure. ProBNP last admission had been negative. Will repeat this admission. Echocardiogram demonstrates preserved ejection fraction. She is compliant with her CPAP. Initially started on IV Lasix but now transitioned to IV Bumex 1 mg BID. Goal net negative 1-2 L negative balance per day. Continue to monitor kidney function and electrolytes. She is hypokalemic on today's labs, replenish as per the primary service. Fluid restriction. Daily standing weights. Strict I&Os. Low sodium diet, less than 2,000 mg daily. If her breathing symptoms do not improve with diuresis, could consider PFTs to rule out other causes for ongoing dyspnea. Recommend close follow up with Dr. Govea upon discharge. Discussed the heart failure program with the patient. Regardless of her etiology, she would likely benefit from further education and volume management on a short term basis. She is agreeable to daily weights at home and does have a scale. She seems very receptive to the program and would like to enroll. Plan to follow along during hospitalization. Anticipate follow up with the heart failure program within 7 days of discharge. History of Present Illness Reason for Consultation: CHF program referral Attending Physician: Kaylie Telles MD History of Present Illness The patient is a 73-year-old woman without a known history of significant cardiac disease who has had two recent admissions for hypervolemia. She has a history of morbid obesity, OLGA requiring CPAP, hypothyroidism, hypergammaglobulinemia, hypertension, and breast cancer. She does not routinely follow with cardiology. Recent cardiac studies: 1. 04/24/19 Echo: Mild concentric LVH. LV systolic function is normal. EF 60-65%. Moderate mitral annular calcification. Dr. Govea is her primary care provider. She was last evaluated in September 2018. She was seen in consult by Dr. Saravia during her previous admission. Patient was initially admitted in March 2019. She presented with progressive dyspnea on exertion and dysuria. CXR suggestive of mild pulmonary edema. ProBNP was negative. Echocardiogram demonstrates preserved EF and no valvular disease. She had no prior history of heart failure at this time. She was treated with IV Lasix 40 mg BID and lost > 20 lb during admission. Patient was transitioned to oral Lasix 40 mg daily on discharge. There was questionable pneumonia on CTA. She completed a 7 day course of Omicef. She was discharged to SNF on 05/03/19. She is currently admitted for weakness and progressive shortness of breath. Patient states following her previous discharge she did take Lasix for a few days and was feeling improved so she stopped. Her symptoms returned. She is generally very sedentary due to chronic knee pain. She is now having difficulty ambulating even short distances. She is short of breath at rest and with conversation today. She was wearing her CPAP when I came to evaluate her. Patient mentions concerns for anxiety/depression in recent weeks. States she's usually "a very jolly person." She currently has a donato catheter which she requesting due to her difficulty with ambulation. She is responding well to diuretics. She is negative 2.3 L so far. She does not weigh herself at home. She does not typically follow a low sodium diet. She denies worsening orthopnea or PND. She typically uses a CPAP at night. She denies significant change in her lower extremity edema. She denies cough, fever, chills, or chest pain. Allergies Allergy/AdvReac Type Severity Reaction Status Date / Time latex Allergy Unknown IF ON SKIN Verified 06/04/19 06:46 FOR LONG PERIOD OF TIME, SHE GETS RED,RASH,ITCH nickel Allergy Unknown contact Verified 06/04/19 06:46 dermatitis codeine AdvReac Mild GI UPSET Verified 06/04/19 06:46 Home Medications Home Medications Medication Instructions Recorded Confirmed Type ipratropium 20 mcg-albuterol 100 1 puff INHALATION HS PRN #4 gm 10/23/18 06/04/19 History mcg/actuation mist for inhalation anastrozole 1 mg tablet 1 mg PO QAM #90 tab 05/16/19 06/04/19 Rx furosemide 40 mg tablet 40 mg PO QAM 30 Days #90 tab 05/16/19 06/04/19 Rx levothyroxine 150 mcg tablet 150 mcg PO Q24H 30 Days #90 tab 05/16/19 06/04/19 Rx potassium chloride 20 mEq 20 meq PO DAILY 30 Days #90 tab 05/16/19 06/04/19 Rx tablet,extended release(part/cryst) pramipexole 0.25 mg tablet 0.25 mg PO HS 30 Days #90 tab 05/16/19 06/04/19 Rx propranolol 80 mg capsule,24 80 mg PO QPM #90 cap 05/16/19 06/04/19 Rx hr,extended release Patient History Medical History Graves disease H/O radioactive iodine thyroid ablation Hearing deficit BL BENITEZ History of breast cancer RIGHT BREAST LUMPECTOMY History of colon polyps Hypertension Morbid obesity with BMI of 60.0-69.9, adult Osteoarthritis Sleep apnea CPAP + 2 LPM OXYGEN QHS Surgical History Difficult airway for intubation H/O breast biopsy (04/16/19) Left Breast Biopsy with Needle Localization Dr. Petty 04-16-19 History of arthroscopy of left knee History of arthroscopy of right knee History of cataract surgery History of cholecystectomy History of colonoscopy History of endometrial biopsy History of esophagogastroduodenoscopy (EGD) History of hysteroscopy History of lumpectomy of right breast History of tonsillectomy History of tubal ligation Family History Mother Cardiac disorder Aunt Difficult intubation Social History Preferred Language: Malagasy Communication Ability: Effective Superintendent Sales Required: No Beliefs That Will Affect Care: None marital status: Current Living Situation: Spouse Other Information That Helps Us Care for You: No Feels Safe at Home: Yes Safety Concerns: Feels Safe At This Time Smoking Status: Never smoker Second Hand Exposure: Yes ( A CHILD) ; Hx Alcohol Use: No Hx Substance Use: No Review of Systems Review of Systems: As noted in HPI. All other ROS are reviewed and otherwise negative at this time. Physical Exam Physical Exam: Constitutional: Alert, oriented, in no acute distress, morbidly obese HEENT: Head is atraumatic and normocephalic. EOMs intact. Sclera anicteric. Face is symmetric. No perioral cyanosis. Mucous membranes moist. Neck: Supple, no obvious JVD but she has a difficult exam Pulmonary: Increased respiratory effort, diminished lung sounds but no crackles or wheezes noted. Cardiac: Regular rate and rhythm. Normal S1 and S2, no gallops, no rubs, no m urmurs Extremities: 2+ radial pulses bilaterally. 2+ posterior tibialis pulses bilaterally. General swelling but no significant pitting edema. No cyanosis or clubbing. Abdomen: Normal bowel sounds, soft, non-tender, obese, no abdominal mass palpated Skin: Normal skin color, turgor, and pigmentation, no rash, no skin lesions Neurological: Patient is awake, alert, and oriented. Pleasant and cooperative. Answers questions appropriately. Speech is clear. Normal movement in all 4 extremities. Results & Data ([facility]) Vital Signs (Past 12 Hours) Vital Signs Temp Pulse Resp BP Pulse Ox 06/05/19 07:15 98.6 F 71 18 150/79 H 95 06/05/19 03:04 97.5 F L 71 18 125/62 94 Coding Level of Care Code 86436 Initial Inpt Care Lvl 3 Diagnoses Hypervolemia E87.70 Morbid obesity E66.01 Obstructive sleep apnea of adult G47.33 Hypokalemia E87.6 Anxiety F41.9 Dyspnea R06.00
[2019-06-05] MEDS: ACETAMINOPHEN 325 MG TAB PO PRN (15:50)
[2019-06-05 16:29] LABS: BUN Creatinine Ratio 8.4 (10-20); Calcium 9.4 mg/dl (8.5-10.1); Creatinine Clr Calc Pharmacy 106.7 ml/min; Est GFR (African American) 84.9; Est GFR (Non-African American) 73.2; Potassium 3.5 mmol/L (3.5-5.1)
[2019-06-05] MEDS: BUMETANIDE 1 MG in SYRINGE 0 ML IV SCH (17:05)
[2019-06-05] MEDS: PRAMIPEXOLE DIHYDROCHLO 0.25 MG TAB PO SCH (21:00)
[2019-06-05] MEDS: PROPRANOLOL HCL LA 80 MG CAPCR PO SCH (21:00)
[2019-06-06] MEDS: LEVOTHYROXINE SODIUM 150 MCG TABLET PO SCH (05:10)
[2019-06-06] MEDS: ONDANSETRON INJ 2 MG/ML 2 ML VIAL IV PRN (05:10)
[2019-06-06 08:02] LABS: BUN Creatinine Ratio 8.3 (10-20); Calcium 10.2 mg/dl (8.5-10.1); Est GFR (African American) 82.3; Magnesium 2.3 mg/dl (1.8-2.4); Potassium 3.7 mmol/L (3.5-5.1)
[2019-06-06] MEDS: ANASTROZOLE 1 MG TAB PO SCH (08:39)
[2019-06-06] MEDS: ENOXAPARIN INJ 40 MG/0.4 ML SYR SQ SCH ×2 (08:40→21:51)
[2019-06-06] MEDS: POTASSIUM CHLORIDE 20 MEQ TABCR PO SCH (08:40)
[2019-06-06] MEDS: BUMETANIDE 1 MG in SYRINGE 0 ML IV SCH ×2 (08:40→16:39)
[2019-06-06] MEDS: HYDROCORTISONE 1% CRM 30 GM TUBE EXT SCH ×2 (08:41→21:48)
[2019-06-06] MEDS ORDERED: SIMETHICONE 80 MG CHEW PO PRN (10:26)
--- NOTE | 2019-06-06 15:30 | Hospitalist Progress Note ---
Date of Service June 06, 2019 Assessment & Plan (1) Diastolic congestive heart failure: Given symptoms, weight gain, and CXR, am considering this an acute exacerbation of chronic diastolic heart failure. Likely due to increased salt intake and incomplete usage of her Lasix. pCXR notable for some volume overload and congestive change without evidence of claire pulmonary edema. having great diuresis - having side effects of nausea, dizziness since starting lasix last admission--> now much improved with changing to Bumex -continue Bumex 1mg IV bid -replace lytes as needed, follow BMP - Monitor weights, I&Os, low Na+ diet and fluid restrict to 1500mL - CHF clinic referral appreciated (2) Physical deconditioning: Deconditioning due to medical illness and obesity. - PT/OT (3) Graves disease: Admission TSH was 0.303. Chart indicates she had a radioactive iodine ablation. - Continue levothyroxine and propranolol which is likely now for HTN TSH mildly low, F4 normal, FT3 low (4) Hypertension: Patient says she is not on any dedicated medications for this; however, her BP was as high as 175/110 during her prior admission. BPs controlled - Continue beta-clementine,with hold parameters for low BP. (5) Obstructive sleep apnea of adult: - Continue night-time CPAP. (6) Leukocytosis: Reportedly was seen by hematology for this previously. No focal indications of infection. Has been elevated for many years, with neutrophilia Seen by Mathew Whitman as per previous reports - No inpatient needs. (7) Anemia: Admit hemoglobin 11.7 and now 11.2, similar to previous values. MCV 88. Iron labs from 03/2019 indicate iron deficiency and anemia of chronic disease. - Monitor (8) Breast cancer, right: On anastrozole. (9) Thoracic aortic aneurysm: Mentioned on pCXR and described on 24Apr2019 CTA chest ascending and descending, 4.4cm - Monitor outpatient (10) Restless leg syndrome: On pramipexole. (11) Nausea: possibly related to lasix? -switched to bumex and now improved (12) Lightheaded: possibly side effect of lasix? check orthostatics--> had a drop with lying to sitting, could not do standing BP Now improved with changing to bumex (13) Rash: possibly due to contact derm from bed? She does lay around in bed almost all day long also could be from lasix? -changed to bumex -apply hydrocortisone cream bid (14) Hypokalemia: secondary to lasix, improved today after replacement -follow BMP (15) Dystrophic nail: Consult Podiatry for nail care (16) DVT prophylaxis: Lovenox 40 mg SQ Q12h - Higher dose due to her BMI. Dispo-continued stay for diuresis PT/OT, she is dyspneic but at baseline function Admission and Anticipated Discharge Date Admission Date: June 05, 2019 Subjective Pt feeling somewhat better today. No longer lightheaded, no further nausea. Is urinating quite a bit with Patton Review of Systems Review of Systems: All systems reviewed & are unremarkable except as noted in HPI & below Physical Exam Constitutional: WD/WN, vitals as above + morbidly obese Eyes: + anicteric sclerae ENMT: external ear and nose normal, oropharynx normal Neck: trachea midline, no thyromegaly Respiratory: normal respiratory effort, lungs clear to auscultation (diminished throughout due to body habitus) Cardiovascular: RRR, no murmur, no edema Chest (Breasts): Chest: normal inspection of chest Gastrointestinal (Abdomen): normal bowel sounds, soft, nontender, no hepatosplenomegaly (morbidly obese) Musculoskeletal: Extremities: extremities normal to inspection; no cyanosis and no clubbing Skin: + nail abnormality (thickened yellow toenails and long nails curling up) Neurologic: moves all extremities and awake; no focal motor deficits Psychiatric: Orientation: alert and oriented x 3 Lymphatic: no lymphedema Results & Data ([facility]) Vital Signs (Past 12 Hours) Vital Signs Temp Pulse Pulse Resp BP BP Pulse Ox 06/06/19 15:00 73 06/06/19 12:03 36.5 C 72 16 125/67 90 06/06/19 09:00 68 06/06/19 06:54 36.6 C 72 20 120/67 93 06/06/19 04:59 36.5 C 71 20 159/87 H 94 06/06/19 03:46 73 20 94 Laboratory Results labs reviewed PG Care Time/CCT Total # of Minutes Spent Total Time Spent with Patient: Total time spent is greater than 50% in coord ination of care (as documented) at patient's floor/unit and/or counseling patient: Coding Level of Care Code 37488 Subseq Hosp Care Lvl 2 Diagnoses Diastolic congestive heart failure I50.30 Physical deconditioning R53.81 Graves disease E05.00 Hypertension I10 Obstructive sleep apnea of adult G47.33 Leukocytosis D72.829 Anemia D64.9 Breast cancer, right C50.911 Thoracic aortic aneurysm I71.2 Restless leg syndrome G25.81 Nausea R11.0 Lightheaded R42 Rash R21 Hypokalemia E87.6 Dystrophic nail L60.3 DVT prophylaxis Z29.9
[2019-06-06] MEDS: PROPRANOLOL HCL LA 80 MG CAPCR PO SCH (21:50)
[2019-06-06] MEDS: ACETAMINOPHEN 325 MG TAB PO PRN (21:52)
[2019-06-06] MEDS: PRAMIPEXOLE DIHYDROCHLO 0.25 MG TAB PO SCH (21:52)
[2019-06-07] MEDS: LEVOTHYROXINE SODIUM 150 MCG TABLET PO SCH (06:21)
[2019-06-07 07:56] LABS: Creatinine Clr Calc Pharmacy 76.6 ml/min; Est GFR (African American) 61.6; Est GFR (Non-African American) 53.1
[2019-06-07] MEDS: BUMETANIDE 1 MG in SYRINGE 0 ML IV SCH ×2 (09:31→17:11)
[2019-06-07] MEDS: POTASSIUM CHLORIDE 20 MEQ TABCR PO SCH (09:31)
[2019-06-07] MEDS: ANASTROZOLE 1 MG TAB PO SCH (09:31)
[2019-06-07] MEDS: HYDROCORTISONE 1% CRM 30 GM TUBE EXT SCH ×2 (09:32→19:32)
[2019-06-07] MEDS: ENOXAPARIN INJ 40 MG/0.4 ML SYR SQ SCH ×2 (09:32→19:33)
--- NOTE | 2019-06-07 17:26 | Hospitalist Progress Note ---
Date of Service June 07, 2019 Assessment & Plan (1) Diastolic congestive heart failure: Given symptoms, weight gain, and CXR, am considering this an acute exacerbation of chronic diastolic heart failure. Likely due to increased salt intake and incomplete usage of her Lasix. pCXR notable for some volume overload and congestive change without evidence of claire pulmonary edema. 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 - PT/OT (3) Graves disease: Admission TSH was 0.303. Chart indicates she had a radioactive iodine ablation. - Continue levothyroxine and propranolol which is likely now for HTN TSH mildly low, F4 normal, FT3 low (4) Hypertension: Patient says she is not on any dedicated medications for this; however, her BP was as high as 175/110 during her prior admission. BPs controlled - Continue beta-clementine,with hold parameters for low BP. (5) Obstructive sleep apnea of adult: - Continue night-time CPAP. (6) Leukocytosis: Reportedly was seen by hematology for this previously. No focal indications of infection. Has been elevated for many years, with neutrophilia Seen by Mathew Whitman as per previous reports - No inpatient needs. (7) Anemia: Admit hemoglobin 11.7 and now 11.2, similar to previous values. MCV 88. Iron labs from 03/2019 indicate iron deficiency and anemia of chronic disease. - Monitor (8) Breast cancer, right: On anastrozole. (9) Thoracic aortic aneurysm: Mentioned on pCXR and described on 24Apr2019 CTA chest ascending and descending, 4.4cm - Monitor outpatient (10) Restless leg syndrome: Not well controlled Increase Mirapex to 0.375mg qhs and order a daytime prn dose of 0.125mg as she is having daytime restless legs/leg jumping -was supposed to be on ferrous sulfate too from previous admission but she reports she is not taking this (11) Nausea: possibly related to lasix? -switched to bumex and now improved (12) Lightheaded: possibly side effect of lasix? check orthostatics--> had a drop with lying to sitting, could not do standing BP Now improved with changing to bumex (13) Rash: possibly due to contact derm from bed? She does lay around in bed almost all day long also could be from lasix? -changed to bumex and now resolving -apply hydrocortisone cream bid (14) Hypokalemia: secondary to lasix, improved after replacement -follow BMP (15) Dystrophic nail: Consult Podiatry for nail care -awaiting consult (16) DVT prophylaxis: Lovenox 40 mg SQ Q12h - Higher dose due to her BMI. Dispo-continued stay for diuresis PT/OT, to go home with home health Admission and Anticipated Discharge Date Admission Date: June 05, 2019 Subjective Feeling a lot of restless legs and legs jumping all day today, is almost tearful about it when discussing. Otherwise reports ambulating to the bathroom today x 2 and had less SOB, didn't feel as tired. No further lightheadedness. Review of Systems Review of Systems: All systems reviewed & are unremarkable except as noted in HPI & below Physical Exam Constitutional: WD/WN, vitals as above + morbidly obese Eyes: + anicteric sclerae Neck: trachea midline, no thyromegaly Respiratory: normal respiratory effort, lungs clear to auscultation (diminished throughout due to body habitus, occasional wheeze MICHELLE) Cardiovascular: RRR, no murmur, no edema Chest (Breasts): Chest: normal inspection of chest Gastrointestinal (Abdomen): normal bowel sounds, soft, nontender, no hepatosplenomegaly (morbidly obese) Musculoskeletal: Extremities: extremities normal to inspection; no cyanosis and no clubbing Skin: + rash (back with much improved mild erythematous papular rash) Neurologic: moves all extremities and awake; no focal motor deficits Psychiatric: Orientation: alert and oriented x 3 Lymphatic: no lymphedema Results & Data ([facility]) Vital Signs (Past 12 Hours) Vital Signs Temp Pulse Pulse Pulse Resp BP Pulse Ox 06/07/19 15:57 71 06/07/19 15:55 37.3 C 76 20 105/63 93 06/07/19 10:41 36.5 C 68 20 96/55 L 90 06/07/19 07:34 73 18 94 06/07/19 07:29 36.8 C 71 20 100/65 92 06/07/19 07:28 72 PG Care Time/CCT Total # of Minutes Spent Total Time Spent with Patient: Total time spent is greater than 50% in coordination of care (as documented) at patient's floor/unit and/or counseling patient: Coding Level of Care Code 98131 Subseq Hosp Care Lvl 2 Diagnoses Diastolic congestive heart failure I50.30 Physical deconditioning R53.81 Graves disease E05.00 Hypertension I10 Obstructive sleep apnea of adult G47.33 Leukocytosis D72.829 Anemia D64.9 Breast cancer, right C50.911 Thoracic aortic aneurysm I71.2 Restless leg syndrome G25.81 Nausea R11.0 Lightheaded R42 Rash R21 Hypokalemia E87.6 Dystrophic nail L60.3 DVT prophylaxis Z29.9
[2019-06-07] MEDS ORDERED: PRAMIPEXOLE DIHYDROCHLO 0.25 MG TAB PO PRN (17:49)
[2019-06-07] MEDS: PRAMIPEXOLE DIHYDROCHLO 0.25 MG TAB PO SCH (19:31)
[2019-06-07] MEDS: PROPRANOLOL HCL LA 80 MG CAPCR PO SCH (19:32)
[2019-06-08] MEDS: LEVOTHYROXINE SODIUM 150 MCG TABLET PO SCH (06:02)
[2019-06-08 07:28] LABS: BUN Creatinine Ratio 11.2 (10-20); Calcium 9.9 mg/dl (8.5-10.1); Creatinine Clr Calc Pharmacy 88.2 ml/min; Est GFR (African American) 73.5; Est GFR (Non-African American) 63.4; Potassium 3.5 mmol/L (3.5-5.1)
[2019-06-08] MEDS: ANASTROZOLE 1 MG TAB PO SCH (08:38)
[2019-06-08] MEDS: BUMETANIDE 1 MG in SYRINGE 0 ML IV SCH ×2 (08:38→16:04)
[2019-06-08] MEDS: POTASSIUM CHLORIDE 20 MEQ TABCR PO SCH (08:39)
[2019-06-08] MEDS: ENOXAPARIN INJ 40 MG/0.4 ML SYR SQ SCH ×2 (08:40→20:14)
[2019-06-08] MEDS: HYDROCORTISONE 1% CRM 30 GM TUBE EXT SCH ×2 (08:40→20:14)
[2019-06-08] MEDS: ACETAMINOPHEN 325 MG TAB PO PRN (11:21)
[2019-06-08] MEDS: PROPRANOLOL HCL LA 80 MG CAPCR PO SCH (20:15)
[2019-06-08] MEDS: PRAMIPEXOLE DIHYDROCHLO 0.25 MG TAB PO SCH (20:15)
[2019-06-08] MEDS: ONDANSETRON INJ 2 MG/ML 2 ML VIAL IV PRN (23:14)
--- NOTE | 2019-06-08 23:14 | Hospitalist Progress Note ---
Date of Service June 08, 2019 Assessment & Plan (1) Diastolic congestive heart failure: Given symptoms, weight gain, and CXR, am considering this an acute exacerbation of chronic diastolic heart failure. Likely due to increased salt intake and incomplete usage of her Lasix. pCXR notable for some volume overload and congestive change without evidence of claire pulmonary edema. Was having great diuresis initially but now has slowed down Overall I/O equals -6.15 L although weight shows -19kg which does not seem likely Renal function remains stable -previously was having side effects of nausea, dizziness since starting lasix last admission--> now resolved with changing to Bumex -Increase Bumex to 2mg IV bid and continue until training and development rep rises -replace lytes as needed-increase potassium chloride to 20 mEq twice daily, follow BMP in the morning - Monitor weights, I&Os, low Na+ diet and fluid restrict to 1500mL - CHF clinic referral appreciated (2) Physical deconditioning: Deconditioning due to medical illness and obesity. - PT/OT and daily ambulation encouraged (3) Graves disease: Admission TSH was 0.303. Chart indicates she had a radioactive iodine ablation. - Continue levothyroxine and propranolol which is likely now for HTN TSH mildly low, F4 normal, FT3 low (4) Hypertension: Patient says she is not on any dedicated medications for this; however, her BP was as high as 175/110 during her prior admission. BPs controlled to low normal at times - Continue beta-clementine,with hold parameters for low BP. (5) Obstructive sleep apnea of adult: - Continue night-time CPAP. (6) Leukocytosis: Reportedly was seen by hematology for this previously. No focal indica tions of infection. Has been elevated for many years, with neutrophilia Seen by Mathew Whitman as per previous reports - No inpatient needs. (7) Anemia: Admit hemoglobin 11.7 and then down to 11.2, similar to previous values. MCV 88. Iron labs from 03/2019 indicate iron deficiency and anemia of chronic disease. - Monitor periodically (8) Breast cancer, right: Continues on anastrozole. (9) Thoracic aortic aneurysm: Mentioned on pCXR and described on 24Apr2019 CTA chest ascending and descending, 4.4cm - Monitor outpatient (10) Restless leg syndrome: Was not well controlled-now improved with increased dose of Mirapex -Continue increased dose of Mirapex at 0.375mg qhs and a daytime prn dose of 0.125mg as she is having daytime restless legs/leg jumping -was supposed to be on ferrous sulfate too from previous admission but she reports she is not taking this (11) Nausea: possibly related to lasix? -switched to bumex and now improved (12) Lightheaded: possibly side effect of lasix? checked orthostatics--> had a drop with lying to sitting, could not do standing BP Now improved with changing to bumex, but reports some residual vague lightheadedness (13) Rash: possibly due to contact derm from bed? She does lay around in bed almost all day long also could be from lasix? -changed to bumex and now resolved -apply hydrocortisone cream bid (14) Hypokalemia: secondary to lasix, improved after replacement -follow BMP -Increase potassium chloride to 20 mEq p.o. twice daily (15) Dystrophic nail: Consult Podiatry for nail care -awaiting consult, not likely to be till Tuesday-would recommend calling podiatry again on Tuesday morning (16) DVT prophylaxis: Lovenox 40 mg SQ Q12h - Higher dose due to her BMI. Dispo-continued stay for diuresis PT/OT, to go home with home health-patient requesting no discharge until Tuesday or Tuesday if possible which would likely be reasonable to continue as much diuresis as possible with IV Bumex Admission and Anticipated Discharge Date Admission Date: June 05, 2019 Anticipated date of discharge: 06/11/19 Subjective Patient is very happy that her restless legs are much improved with the increased dose of Mirapex. She still feels a little lightheaded at times. She was able to ambulate to the bathroom and back today but is surprised by how weak she has become since being in the hospital and understands the importance of continuing to ambulate to keep her strength up. Denies chest pain or shortness of breath. She reports a lot of anxiety about going home through the weekend and request to stay until Tuesday to make sure that her heart is going to be okay. Review of Systems Review of Systems: All systems reviewed & are unremarkable except as noted in HPI & below Physical Exam Constitutional: WD/WN, vitals as above + morbidly obese Eyes: + anicteric sclerae ENMT: external ear and nose normal, oropharynx normal Neck: trachea midline, no thyromegaly Respiratory: normal respiratory effort, lungs clear to auscultation (diminished throughout due to body habitus, occasional wheeze MICHELLE) Cardiovascular: RRR, no murmur, no edema Chest (Breasts): Chest: normal inspection of chest Gastrointestinal (Abdomen): normal bowel sounds, soft, nontender, no hepatosplenomegaly (morbidly obese) Musculoskeletal: Extremities: extremities normal to inspection; no cyanosis and no clubbing Skin: no rashes, warm and dry (Rash on back is now resolved) Neurologic: moves all extremities and awake; no focal motor deficits Psychiatric: Orientation: alert and oriented x 3 Genitourinary: Patton catheter in place draining clear yellow urine Lymphatic: no lymphedema Results & Data ([facility]) Vital Signs (Past 12 Hours) Vital Signs Temp Pulse Pulse Resp BP Pulse Ox 06/08/19 19:11 36.5 C 76 20 132/68 91 06/08/19 16:37 79 06/08/19 15:46 36.6 C 70 18 96/58 L 91 06/08/19 11:46 36.6 C 83 18 113/68 91 Laboratory Results 06/08/19 Range/Units 06:31 Sodium 135 L (136-145) mmol/L Potassium 3.5 (3.5-5.1) mmol/L Chloride 96 L (98-107) mmol/L Carbon Dioxide 34 H (21-32) mmol/L Anion Gap 5.0 (3-11) BUN 10 (7-18) mg/dl Creatinine 0.89 (0.6-1.2) mg/dl Est Cr Clr Drug Dosing 88.2 ml/min Est GFR ( Amer) 73.5 Est GFR (Non-Af Amer) 63.4 BUN/Creatinine Ratio 11.2 (10-20) Glucose 99 (70-99) mg/dl Calcium 9.9 (8.5-10.1) mg/dl Magnesium 2.0 (1.8-2.4) mg/dl PG Care Time/CCT Total # of Minutes Spent Total Time Spent with Patient: Total time spent is greater than 50% in coordination of care (as documented) at patient's floor/unit and/or counseling patient: Coding Level of Care Code 66946 Subseq Hosp Care Lvl 2 Diagnoses Diastolic congestive heart failure I50.30 Physical deconditioning R53.81 Graves disease E05.00 Hypertension I10 Obstructive sleep apnea of adult G47.33 Leukocytosis D72.829 Anemia D64.9 Breast cancer, right C50.911 Thoracic aortic aneurysm I71.2 Restless leg syndrome G25.81 Nausea R11.0 Lightheaded R42 Rash R21 Hypokalemia E87.6 Dystrophic nail L60.3 DVT prophylaxis Z29.9
[2019-06-09] MEDS: LEVOTHYROXINE SODIUM 150 MCG TABLET PO SCH (06:17)
[2019-06-09] MEDS: HYDROCORTISONE 1% CRM 30 GM TUBE EXT SCH ×2 (07:54→20:10)
[2019-06-09] MEDS: ENOXAPARIN INJ 40 MG/0.4 ML SYR SQ SCH ×2 (07:54→20:12)
[2019-06-09] MEDS: BUMETANIDE 2 MG in SYRINGE 0 ML IV SCH ×2 (07:55→17:35)
[2019-06-09] MEDS: ANASTROZOLE 1 MG TAB PO SCH (07:59)
[2019-06-09 08:22] LABS: BUN Creatinine Ratio 12.5 (10-20); Calcium 9.5 mg/dl (8.5-10.1); Creatinine Clr Calc Pharmacy 81.4 ml/min; Est GFR (African American) 67.1; Est GFR (Non-African American) 57.9; Potassium 3.3 mmol/L (3.5-5.1)
[2019-06-09] MEDS ORDERED: POTASSIUM CHLORIDE 20 MEQ TABCR PO SCH (09:00)
[2019-06-09] MEDS ORDERED: POTASSIUM CHLORIDE 20 MEQ TABCR PO STA (10:27)
[2019-06-09] MEDS: ONDANSETRON INJ 2 MG/ML 2 ML VIAL IV PRN (11:51)
[2019-06-09] MEDS ORDERED: MICONAZOLE NITRATE POWDER 43 GM EXT PRN (13:18)
--- NOTE | 2019-06-09 17:19 | Hospitalist Progress Note ---
Date of Service June 09, 2019 Assessment & Plan (1) Diastolic congestive heart failure: Given symptoms, weight gain, and CXR, this is considered an acute exacerbation of chronic diastolic heart failure. Likely due to increased salt intake and incomplete usage of her Lasix. She also was not aware she should be on a fluid restriction pCXR notable for some volume overload and congestive change without evidence of claire pulmonary edema. 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 - PT/OT and daily ambulation encouraged (3) Graves disease: Admission TSH was 0.303. Chart indicates she had a radioactive iodine ablation. - Continue levothyroxine and propranolol which is likely now for HTN TSH mildly low, F4 normal, FT3 low (4) Hypertension: Patient says she is not on any dedicated medications for this; however, her BP was as high as 175/110 during her prior admission. BPs controlled to low normal at times - Continue beta-clementine,with hold parameters for low BP. (5) Obstructive sleep apnea of adult: - Continue night-time CPAP. (6) Leukocytosis: Reportedly was seen by hematology for this previously. No focal indications of infection. Has been elevated for many years, with neutrophilia [facility] - No inpatient needs. (7) Anemia: Admit hemoglobin 11.7 and then down to 11.2, similar to previous values. MCV 88. Iron labs from 03/2019 indicate iron deficiency and anemia of chronic disease. - Monitor periodically (8) Breast cancer, right: Continues on anastrozole. (9) Thoracic aortic aneurysm: Mentioned on pCXR and described on 24Apr2019 CTA chest ascending and descending, 4.4cm - Monitor outpatient (10) Restless leg syndrome: Was not well controlled-now improved with increased dose of Mirapex -Continue increased dose of Mirapex at 0.375mg qhs and a daytime dose of 0.125mg as she is having daytime restless legs/leg jumping -was supposed to be on ferrous sulfate too from previous admission but she reports she is not taking this (11) Nausea: possibly related to lasix? -switched to bumex and now improved (12) Lightheaded: possibly side effect of lasix? checked orthostatics--> had a drop with lying to sitting, could not do standing BP Now improved with changing to bumex, but reports some residual vague lightheadedness (13) Rash: possibly due to contact derm from bed? She does lay around in bed almost all day long also could be from lasix? -changed to bumex and now resolved -apply hydrocortisone cream bid (14) Hypokalemia: secondary to lasix, improved after replacement but now down again -follow BMP -Increase potassium chloride to 40 mEq p.o. twice daily especially with increased dose of Bumex (15) Dystrophic nail: Consult Podiatry for nail care -awaiting consult, not likely to be till Tuesday-would recommend calling podiatry again on Tuesday morning (16) DVT prophylaxis: Lovenox 40 mg SQ Q12h - Higher dose due to her BMI. Dispo-continued stay for diuresis PT/OT, to go home with home health-patient requesting no discharge until Tuesday or Tuesday if possible which would likely be reasonable to continue as much diuresis as possible with IV Bumex Admission and Anticipated Discharge Date Admission Date: June 05, 2019 Anticipated date of discharge: 06/11/19 Subjective Pt was sleeping with her CPAP on when I first came in and it took her a few minutes to wake up fully after she took off her CPAP. She reports having some pain in left side of face from CPAP mask but otherwise ok. No SOB. Did not get out of bed yet today by 5 PM. Tele with NSR, 60s-80s Review of Systems Review of Systems: All systems reviewed & are unremarkable except as noted in HPI & below Physical Exam Constitutional: WD/WN, vitals as above + morbidly obese Eyes: + anicteric sclerae Neck: trachea midline, no thyromegaly Respiratory: normal respiratory effort, lungs clear to auscultation Cardiovascular: RRR, no murmur, no edema Chest (Breasts): Chest: normal inspection of chest Gastrointestinal (Abdomen): normal bowel sounds, soft, nontender, no hepatosplenomegaly (morbidly obese) Musculoskeletal: Extremities: extremities normal to inspection; no cyanosis and no clubbing Skin: no rashes, warm and dry (Rash on back is now resolved) Neurologic: moves all extremities and awake; no focal motor deficits Psychiatric: Orientation: alert and oriented x 3 Genitourinary: + abnormal external appearance (Patton in place with clear yellow urine) Lymphatic: no lymphedema Results & Data ([facility]) Vital Signs (Past 12 Hours) Vital Signs Temp Pulse Pulse Pulse Resp BP Pulse Ox 06/09/19 14:45 36.7 C 72 20 106/64 91 06/09/19 11:40 36.4 C L 71 20 113/68 90 06/09/19 07:54 36.7 C 66 20 116/72 92 06/09/19 07:38 66 22 94 Laboratory Results 06/09/19 Range/Units 07:07 Sodium 135 L (136-145) mmol/L Potassium 3.3 L (3.5-5.1) mmol/L Chloride 95 L (98-107) mmol/L Carbon Dioxide 34 H (21-32) mmol/L Anion Gap 6.0 (3-11) BUN 12 (7-18) mg/dl Creatinine 0.96 (0.6-1.2) mg/dl Est Cr Clr Drug Dosing 81.4 ml/min Est GFR ( Amer) 67.1 Est GFR (Non-Af Amer) 57.9 BUN/Creatinine Ratio 12.5 (10-20) Glucose 100 H (70-99) mg/dl Calcium 9.5 (8.5-10.1) mg/dl Magnesium 2.0 (1.8-2.4) mg/dl PG Care Time/CCT Total # of Minutes Spent Total Time Spent with Patient: Total time spent is greater than 50% in coordination of care (as documented) at patient's floor/unit and/or counseling patient: Coding Level of Care Code 45866 Subseq Hosp Care Lvl 2 Diagnoses Diastolic congestive heart failure I50.30 Physical deconditioning R53.81 Graves disease E05.00 Hypertension I10 Obstructive sleep apnea of adult G47.33 Leukocytosis D72.829 Anemia D64.9 Breast cancer, right C50.911 Thoracic aortic aneurysm I71.2 Restless leg syndrome G25.81 Nausea R11.0 Lightheaded R42 Rash R21 Hypokalemia E87.6 Dystrophic nail L60.3 DVT prophylaxis Z29.9
[2019-06-09] MEDS: POTASSIUM CHLORIDE 20 MEQ TABCR PO SCH (17:35)
[2019-06-09] MEDS: PROPRANOLOL HCL LA 80 MG CAPCR PO SCH (20:10)
[2019-06-09] MEDS: PRAMIPEXOLE DIHYDROCHLO 0.25 MG TAB PO SCH (20:11)
[2019-06-10] MEDS: LEVOTHYROXINE SODIUM 150 MCG TABLET PO SCH (06:18)
[2019-06-10 07:02] LABS: BUN Creatinine Ratio 11.7 (10-20); Creatinine Clr Calc Pharmacy 75.1 ml/min; Est GFR (African American) 60.9; Est GFR (Non-African American) 52.5; Potassium 3.7 mmol/L (3.5-5.1)
[2019-06-10] MEDS: POTASSIUM CHLORIDE 20 MEQ TABCR PO SCH ×2 (07:53→17:00)
[2019-06-10] MEDS: BUMETANIDE 2 MG in SYRINGE 0 ML IV SCH ×2 (07:53→17:00)
[2019-06-10] MEDS: ENOXAPARIN INJ 40 MG/0.4 ML SYR SQ SCH ×2 (07:53→21:07)
[2019-06-10] MEDS: ANASTROZOLE 1 MG TAB PO SCH (07:53)
[2019-06-10] MEDS: HYDROCORTISONE 1% CRM 30 GM TUBE EXT SCH ×2 (07:54→21:08)
[2019-06-10] MEDS: PRAMIPEXOLE DIHYDROCHLO 0.25 MG TAB PO SCH ×2 (08:00→21:08)
[2019-06-10] MEDS: ACETAMINOPHEN 325 MG TAB PO PRN (12:19)
--- NOTE | 2019-06-10 16:37 | Hospitalist Progress Note ---
Date of Service June 10, 2019 Assessment & Plan (1) Diastolic congestive heart failure: Given symptoms of dyspnea, weight gain, and CXR, this is considered an acute exacerbation of chronic diastolic heart failure. Likely due to increased salt intake and incomplete usage of her Lasix. She also was not aware she should be on a fluid restriction pCXR notable for some volume overload and congestive change without evidence of claire pulmonary edema. Was having great diuresis initially but then slowed down. 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 - PT/OT and daily ambulation encouraged (3) Graves disease: Admission TSH was 0.303. Chart indicates she had a radioactive iodine ablation. - Continue levothyroxine and propranolol which is likely now for HTN TSH mildly low, F4 normal, FT3 low (4) Hypertension: Patient says she is not on any dedicated medications for this; however, her BP was as high as 175/110 during her prior admission. BPs controlled to low normal at times - Continue beta-clementine,with hold parameters for low BP. (5) Obstructive sleep apnea of adult: - Continue night-time CPAP. (6) Leukocytosis: Reportedly was seen by hematology for this previously. No focal indications of infection. Has been elevated for many years, with neutrophilia Seen by [facility] as per previous reports - No inpatient needs. (7) Anemia: Admit hemoglobin 11.7 and then down to 11.2, similar to previous values. MCV 88. Iron labs from 03/2019 indicate iron deficiency and anemia of chronic disease. - Monitor periodically (8) Breast cancer, right: Continues on anastrozole. (9) Thoracic aortic aneurysm: Mentioned on pCXR and described on 24Apr2019 CTA chest ascending and descending, 4.4cm - Monitor outpatient (10) Restless leg syndrome: Was not well controlled-now improved with increased dose of Mirapex, however with cramping of her tongue and occasional cramping of the left side of her face, suspect she might be having some sort of mild dystonic reaction to the higher dose of Mirapex -Decrease nighttime dose back to the home dose of 0.25 mg, however will continue the daytime dose of 0.125 mg as this has helped her tremendously with RLS symptoms during the day (11) Nausea: possibly related to lasix? Versus gut edema and poor absorption due to volume overload -switched to bumex and now resolved after significant diuresis (12) Lightheaded: possibly side effect of lasix? checked orthostatics--> had a drop with lying to sitting early in the admission, could not do standing BP Now improved with changing to bumex, but reports some residual vague lightheadedness (13) Rash: possibly due to contact derm from bed? She does lay around in bed almost all day long also could be from lasix? -changed to bumex and now resolved -apply hydrocortisone cream bid (14) Hypokalemia: secondary to lasix, improved after replacement -follow BMP -Continue potassium chloride to 40 mEq p.o. twice daily especially with increased dose of Bumex, however will likely need a lower dose of this upon discharge with oral diuretics (15) Dystrophic nail: Consult Podiatry for nail care as per patient's request as she has significant ambulatory dysfunction and has terrible appearing nail/foot care -awaiting consult, not likely to be till Tuesday-would recommend calling podiatry again on Tuesday morning as they did not come through the weekend (16) DVT prophylaxis: Lovenox 40 mg SQ Q12h - Higher dose due to her BMI. Dispo-continued stay for diuresis, however is significantly improved and will likely be ready for discharge in the next 2 days PT/OT, plan is to go home with home health Admission and Anticipated Discharge Date Admission Date: June 05, 2019 Anticipated date of discharge: 06/12/19 Subjective Patient is out of bed to a chair for the first time in a week. She reports today is the first time that she has not felt short of breath in a long time. She is also having a sensation that her tongue is having a charley horse and similar to the sensation she felt in her left jaw yesterday. We discussed that this could possibly be a side effect of the Mirapex but she absolutely did not want to stop the daytime dose as it is helping her daytime restless legs so much. She is agreeable to lowering the nighttime dose. When asked if she is still having lightheadedness, she reported "will not now." No nausea, no chest pains Review of Systems Review of Systems: All systems reviewed & are unremarkable except as noted in HPI & below Physical Exam Constitutional: WD/WN, vitals as above + morbidly obese Eyes: + anicteric sclerae Neck: trachea midline, no thyromegaly Respiratory: normal respiratory effort, lungs clear to auscultation Cardiovascular: RRR, no murmur, no edema Chest (Breasts): Chest: normal inspection of chest Gastrointestinal (Abdomen): normal bowel sounds, soft, nontender, no hepatosplenomegaly (morbidly obese) Musculoskeletal: Extremities: extremities normal to inspection; no cyanosis and no clubbing Skin: no rashes, warm and dry (Rash on back is now resolved) Neurologic: moves all extremities and awake; no focal motor deficits Psychiatric: Orientation: alert and oriented x 3 Genitourinary: + abnormal external appearance (Patton in place with clear yellow urine) Lymphatic: no lymphedema Results & Data ([facility]) Vital Signs (Past 12 Hours) Vital Signs Temp Pulse Pulse Pulse Resp BP BP 06/10/19 15:47 36.6 C 74 20 119/67 06/10/19 15:17 65 06/10/19 11:13 36.4 C L 71 20 98/63 L 06/10/19 07:11 36.8 C 68 20 111/59 L Pulse Ox 06/10/19 15:47 90 06/10/19 15:17 06/10/19 11:13 92 06/10/19 07:11 90 Laboratory Results 06/10/19 Range/Units 06:03 Sodium 137 (136-145) mmol/L Potassium 3.7 (3.5-5.1) mmol/L Chloride 95 L (98-107) mmol/L Carbon Dioxide 37 H (21-32) mmol/L Anion Gap 5.0 (3-11) BUN 12 (7-18) mg/dl Creatinine 1.04 (0.6-1.2) mg/dl Est Cr Clr Drug Dosing 75.1 ml/min Est GFR ( Amer) 60.9 Est GFR (Non-Af Amer) 52.5 BUN/Creatinine Ratio 11.7 (10-20) Glucose 96 (70-99) mg/dl Calcium 10.0 (8.5-10.1) mg/dl PG Care Time/CCT Total # of Minutes Spent Total Time Spent with Patient: Total time spent is greater than 50% in coordination of care (as documented) at patient's floor/unit and/or counseling patient: Coding Level of Care Code 16483 Subseq Hosp Care Lvl 2 Diagnoses Diastolic congestive heart failure I50.30 Physical deconditioning R53.81 Graves disease E05.00 Hypertension I10 Obstructive sleep apnea of adult G47.33 Leukocytosis D72.829 Anemia D64.9 Breast cancer, right C50.911 Thoracic aortic aneurysm I71.2 Restless leg syndrome G25.81 Nausea R11.0 Lightheaded R42 Rash R21 Hypokalemia E87.6 Dystrophic nail L60.3 DVT prophylaxis Z29.9
[2019-06-10] MEDS: PROPRANOLOL HCL LA 80 MG CAPCR PO SCH (21:07)
[2019-06-11] MEDS: LEVOTHYROXINE SODIUM 150 MCG TABLET PO SCH (05:56)
[2019-06-11 07:45] LABS: BUN Creatinine Ratio 15.6 (10-20); Creatinine Clr Calc Pharmacy 81.8 ml/min; Est GFR (African American) 67.9; Est GFR (Non-African American) 58.6; Potassium 3.7 mmol/L (3.5-5.1)
[2019-06-11] MEDS: BUMETANIDE 2 MG in SYRINGE 0 ML IV SCH (08:57)
[2019-06-11] MEDS: HYDROCORTISONE 1% CRM 30 GM TUBE EXT SCH ×2 (08:58→20:58)
[2019-06-11] MEDS: ANASTROZOLE 1 MG TAB PO SCH (08:58)
[2019-06-11] MEDS: POTASSIUM CHLORIDE 20 MEQ TABCR PO SCH ×2 (08:58→17:03)
[2019-06-11] MEDS: PRAMIPEXOLE DIHYDROCHLO 0.25 MG TAB PO SCH ×2 (08:58→20:57)
[2019-06-11] MEDS: ENOXAPARIN INJ 40 MG/0.4 ML SYR SQ SCH ×2 (08:59→20:57)
--- NOTE | 2019-06-11 13:55 | Hospitalist Progress Note ---
Date of Service June 11, 2019 Assessment & Plan (1) Diastolic congestive heart failure: Given initial symptoms of dyspnea, weight gain, and CXR, this is considered an acute exacerbation on chronic diastolic heart failure. Likely due to increased salt intake and incomplete usage of her Lasix. She also was not aware she should be on a fluid restriction pCXR notable for some volume overload and congestive change without evidence of claire pulmonary edema. Significant diuresis during admission without bump in creatinine however no current oxygen requirement or even significant peripheral edema that I do not feel she needs ongoing IV diuretics at this point. The majority of her fluid issues are likely down to malnutrition, obesity, sodium intake and immobility rather than inherent heart disease however goal of diuresis remains similar remains the same. Will relax fluid restriction by patient request and she will not be compliant with this at home if requesting relaxation here. Patton cath to be removed to encourage mobilization and decrease risk of UTI. - CHF clinic referral appreciated-patient has been given education on a daily basis on how to manage her CHF at home, however she will need a lot of support through the CHF clinic after discharge to keep her from coming back (2) Physical deconditioning: Deconditioning due to medical illness and obesity. - PT/OT and daily ambulation encouraged (3) Graves disease: Admission TSH was 0.303 s/p radioactive iodine ablation. - Continue levothyroxine and propranolol which is likely now for HTN TSH mildly low, F4 normal, FT3 low (4) Hypertension: Patient says she is not on any dedicated medications for this; however, her BP was as high as 175/110 during her prior admission. BPs controlled to low normal at times - Continue beta-clementine,with hold parameters for low BP. (5) Obstructive sleep apnea of adult: - Continue night-time CPAP. (6) Leukocytosis: Reportedly was seen by hematology for this previously. No focal indications of infection. Has been elevated for many years, with neutrophilia [facility] - No inpatient needs. (7) Anemia: Admit hemoglobin 11.7 and then down to 11.2, similar to previous values. MCV 88. Iron labs from 03/2019 indicate iron deficiency and anemia of chronic disease. - Monitor periodically (8) Breast cancer, right: Continues on anastrozole. (9) Thoracic aortic aneurysm: Mentioned on pCXR and described on 24Apr2019 CTA chest ascending and descending, 4.4cm - Monitor outpatient (10) Restless leg syndrome: Prapipexole adjusted throughout admission with side effects with higher doses. Now continues on home night-time dose of 0.25 mg, with new daytime dose of 0.125 mg as this has helped her tremendously with RLS symptoms during the day (11) Nausea: Resolved after diuresis ?secondary to gut edema (12) Lightheaded: No current concerns, improved BP today. (13) Hypokalemia: secondary to loop diuretic use will continue to monitor and replace as necessary, appears to be relatively stable on currently KCl 40meq PO BID (14) Dystrophic nail: Awaiting podiatry constult (15) DVT prophylaxis: Lovenox 40 mg SQ Q12h - Higher dose due to her BMI. Dispo-continued stay for diuresis, however is significantly improved and will likely be ready for discharge in the next 2 days PT/OT, plan is to go home with home health Admission and Anticipated Discharge Date Admission Date: June 05, 2019 Anticipated date of discharge: 06/12/19 Subjective Initially patient seen around 1:30pm but she wished to be seen at another time as she was watching a show. Reports not feeling ready for discharge at present as feels there is still a significant amount of water weight to come off. She is concerned about going home and maintaining her current fluid balance. Review of Systems Review of Systems: All systems reviewed & are unremarkable except as noted in HPI & below Physical Exam Constitutional: WD/WN, vitals as above + morbidly obese Eyes: + anicteric sclerae; normal pupil size ENMT: external ear and nose normal, oropharynx normal Neck: trachea midline, no thyromegaly Respiratory: normal respiratory effort, lungs clear to auscultation Cardiovascular: RRR, no murmur, no edema Chest (Breasts): Chest: normal inspection of chest Gastrointestinal (Abdomen): normal bowel sounds, soft, nontender, no hepatosplenomegaly (morbidly obese) Musculoskeletal: Extremities: extremities normal to inspection; no cyanosis and no clubbing Skin: no rashes, warm and dry (Rash on back is now resolved) + rash (back with much improved mild erythematous papular rash) Neurologic: moves all extremities and awake; no focal motor deficits Psychiatric: Orientation: alert and oriented x 3 Affect: + flat affect Genitourinary: normal external appearance (Patton in place with clear yellow urine) Lymphatic: no lymphedema Results & Data ([facility]) Vital Signs (Past 12 Hours) Vital Signs Temp Pulse Pulse Resp BP BP Pulse Ox 06/11/19 11:11 36.2 C L 76 16 130/74 91 06/11/19 10:31 74 06/11/19 06:59 36.5 C 76 20 106/61 90 06/11/19 03:12 36.6 C 75 18 101/56 L 92 06/11/19 03:07 79 PG Care Time/CCT Total # of Minutes Spent Total Time Spent with Patient: Total time spent is greater than 50% in coordination of care (as documented) at patient's floor/unit and/or counseling patient: Coding Level of Care Code 20907 Subseq Hosp Care Lvl 2 Diagnoses Diastolic congestive heart failure I50.33 Heart failure chronicity: acute on chronic Physical deconditioning R53.81 Graves disease E05.00 Hypertension I10 Hypertension type: essential hypertension Obstructive sleep apnea of adult G47.33 Leukocytosis D72.825 Leukocytosis type: bandemia Anemia D64.9 Breast cancer, right C50.911 Thoracic aortic aneurysm I71.2 Presence of rupture: without rupture Restless leg syndrome G25.81 Nausea R11.0 Lightheaded R42 Hypokalemia E87.6 Dystrophic nail L60.3 DVT prophylaxis Z29.9 (1) Diastolic congestive heart failure Heart failure chronicity: acute on chronic Qualified Code(s): I50.33 - Acute on chronic diastolic (congestive) heart failure (2) Thoracic aortic aneurysm Presence of rupture: without rupture Qualified Code(s): I71.2 - Thoracic aortic aneurysm, without rupture (3) Leukocytosis Leukocytosis type: bandemia Qualified Code(s): D72.825 - Bandemia (4) Hypertension Hypertension type: essential hypertension Qualified Code(s): I10 - Essential (primary) hypertension
--- NOTE | 2019-06-11 14:38 | Heart Failure Progress Note ---
Date of Service June 11, 2019 Assessment & Plan (1) Diastolic congestive heart failure: Patient continues to improve clinically. Her exam is difficult due to her body habitus. She continues to diurese on Bumex 2 mg IV BID. Her dry weight is unknown at this time. Would recommend continued diuresis until her BUN/creatinine bump. Would recommend transition to oral diuretics for 24 hour prior to discharge to insure it's an adequate dose. Recommend consistent daily standing weights upon returning home. She should notify the heart failure program of 2+ lb weight gain overnight or 5+ lb weight gain in 1 week. Recommend low sodium diet, less than 2,000 mg daily. She should continue to fluid restrict at home. Anticipate follow up with the heart failure program within 7 days of discharge. This will be arranged and added to her instructions. Subjective Patient reports she continues to improve. Her breathing is significantly improved. She is no longer requiring her CPAP during the day and states she did not use it last night. She denies worsening orthopnea, PND. Her legs are improving and not as sensitive. She continues to adequately diurese. She was increased to Bumex 2 mg IV BID. She is net negative 10 L so far. BUN/creatinine remain stable. Physical Exam Physical Exam: Constitutional: Alert, oriented, in no acute distress, morbidly obese HEENT: Head is atraumatic and normocephalic. EOMs intact. Sclera anicteric. Face is symmetric. No perioral cyanosis. Mucous membranes moist. Neck: Supple, no obvious JVD but she has a difficult exam Pulmonary: Increased respiratory effort, diminished lung sounds but no crackles or wheezes noted. Cardiac: Regular rate and rhythm. Normal S1 and S2, no gallops, no rubs, no murmurs Extremities: 2+ radial pulses bilaterally. 2+ posterior tibialis pulses bilaterally. General swelling but no significant pitting edema. No cyanosis or clubbing. Abdomen: Normal bowel sounds, soft, non-tender, obese, no abdominal mass palpated Skin: Normal skin color, turgor, and pigmentation, no rash, no skin lesions Neurological: Patient is awake, alert, and oriented. Pleasant and cooperative. Answers questions appropriately. Speech is clear. Normal movement in all 4 extremities. Results & Data Vital Signs (Past 12 Hours) Vital Signs Temp Pulse Pulse Resp BP BP Pulse Ox 06/11/19 11:11 97.2 F L 76 16 130/74 91 06/11/19 10:31 74 06/11/19 06:59 97.7 F 76 20 106/61 90 06/11/19 03:12 97.9 F 75 18 101/56 L 92 06/11/19 03:07 79 PG Care Time/CCT Total # of Minutes Spent Total Time Spent with Patient: Total time spent is greater than 50% in coordination of care (as documented) at patient's floor/unit and/or counseling patient: Coding Level of Care Code 34025 Subseq Hosp Care Lvl 2 Diagnoses Diastolic congestive heart failure I50.30
[2019-06-11] MEDS: BUMETANIDE 1 MG TAB PO SCH (17:03)
[2019-06-11] MEDS: PROPRANOLOL HCL LA 80 MG CAPCR PO SCH (20:58)
[2019-06-12] MEDS: LEVOTHYROXINE SODIUM 150 MCG TABLET PO SCH (06:32)
[2019-06-12 09:14] LABS: Hematocrit (blood only) 40.7 % (37-47); Mean Corpuscular Hemoglobin 28.3 pg (25-34); Mean Corpuscular Hgb Conc 31.9 g/dL (32-36); Mean Corpuscular Volume 88.5 fL (80-100); Mean Platelet Volume 10.3 fL (7.4-10.4); Platelet Count 318 K/uL (130-400); RDW Coefficient of Variation 14.2 % (11.5-14.5); RDW Standard Deviation 45.6 fL (36.4-46.3); White Blood Count 16.77 K/uL (4.8-10.8)
[2019-06-12 09:50] LABS: BUN Creatinine Ratio 14.2 (10-20); Calcium 9.9 mg/dl (8.5-10.1); Creatinine Clr Calc Pharmacy 75.3 ml/min; Est GFR (African American) 61.6; Est GFR (Non-African American) 53.1; Potassium 3.2 mmol/L (3.5-5.1)
[2019-06-12] MEDS: BUMETANIDE 1 MG TAB PO SCH (09:56)
[2019-06-12] MEDS: POTASSIUM CHLORIDE 20 MEQ TABCR PO SCH (09:56)
[2019-06-12] MEDS: PRAMIPEXOLE DIHYDROCHLO 0.25 MG TAB PO SCH (09:57)
[2019-06-12] MEDS: ANASTROZOLE 1 MG TAB PO SCH (09:57)
[2019-06-12] MEDS: HYDROCORTISONE 1% CRM 30 GM TUBE EXT SCH (09:57)
[2019-06-12] MEDS: ENOXAPARIN INJ 40 MG/0.4 ML SYR SQ SCH (09:58)
[2019-06-12] MEDS ORDERED: POTASSIUM CHLORIDE 20 MEQ TABCR PO STA (10:07)
--- NOTE | 2019-06-20 08:24 | Discharge Summary ---
Date of Service June 12, 2019 Admission HPI Per Admitting Provider 73-year-old female presents for further evaluation of a generalized feeling of fatigue, "dizziness", lightheadedness, and most recently this morning a mechanical fall. - This morning, patient says she was walking up some steps to get into her bed when she accidentally slipped, fell, and landed on her bottom. She denies any head trauma, loss of consciousness, headache, or vomiting. She thinks that those steps into her bed are just simply not adequate anymore for her. - In general, she says that she just feels unwell. She denies any known fevers or focal illness. However, she says she feels a vague dizziness, lightheadedness, and not like her normal self ever since her hospital discharge on May 01. She wonders if it is related to starting on Lasix. She says that she went to rehab for about a week after her last hospital discharge and overall really disliked it. - Regarding her previous diagnosis of diastolic heart failure, patient says she is not sure exactly how to keep track of this. She asks lots of questions about overall fluid status and how she knows if she has some fluid overload. She says that she had an appointment with her PCP, Dr. Govea, on hospital discharge but ended up canceling it because she just generally felt unwell. - Past medical history includes hypertension, morbid obesity, sleep apnea, Graves' disease, right breast cancer, congested heart failure with preserved EF, restless leg syndrome, cutaneous candidiasis, hearing loss, thoracic aortic aneurysm, anemia, chronic leukocytosis - Past surgical history includes right breast lumpectomy, hysterectomy, cataract surgery, cholecystectomy, tonsillectomy, - Social history includes denying any tobacco use, alcohol use. Lives at home with . PCP is Dr. Govea. Principal Diagnosis Fluid retention, suspected diastolic heart failure Deconditioning Obstructive sleep apnea Obesity hypoventilation Discharge Exam Constitutional WD/WN, vitals as above + morbidly obese Eyes + anicteric sclerae; normal pupil size ENMT external ear and nose normal, oropharynx normal Neck trachea midline, no thyromegaly Respiratory normal respiratory effort, lungs clear to auscultation Cardiovascular RRR, no murmur, no edema Gastrointestinal (Abdomen) normal bowel sounds, soft, nontender, no hepatosplenomegaly (morbidly obese) Musculoskeletal Extremities: extremities normal to inspection; no cyanosis and no clubbing Skin + rash (back with much improved mild erythematous papular rash) Neurologic moves all extremities and awake; no focal motor deficits Psychiatric Orientation: alert and oriented x 3 Discharge Data Allergies Allergy/AdvReac Type Severity Reaction Status Date / Time latex Allergy Unknown IF ON SKIN Verified 06/14/19 00:34 FOR LONG PERIOD OF TIME, SHE GETS RED,RASH,ITCH nickel Allergy Unknown contact Verified 06/14/19 00:34 dermatitis codeine AdvReac Mild GI UPSET Verified 06/14/19 00:34 Consultations 06/04/19 08:38 ED Decision to Admit Stat 06/04/19 10:14 ED Decision to Admit Stat 06/04/19 12:19 Consult Case Management - Discharge Planning Routine 06/04/19 14:50 [facility] CHF Program Referral Routine 06/06/19 13:24 Consult Podiatry Routine Ordered Studies 06/04/19 07:03 CT head/brain wo con Stat Hospital Course (1) Diastolic congestive heart failure: Rose Santos is a 73 year old female admitted to [facility] from June 03 to 2019 due to shortness of breath. Diagnosed with fluid retention treated with reduced salt in your diet and increased Bumex. Switched Lasix to Bumex on discharge. Also secondary to general deconditioning, morbid obesity, obesity hypoventilation and obstructive sleep apnea. She certainly has a fluid balance issue but this is likely more diet related than diastolic heart failure, however she will be followed up in the [facility] heart failure clinic to help manage this at least in the short term. (2) Physical deconditioning: (3) Graves disease: (4) Hypertension: (5) Obstructive sleep apnea of adult: (6) Leukocytosis: (7) Anemia: (8) Breast cancer, right: (9) Thoracic aortic aneurysm: (10) Restless leg syndrome: (11) Nausea: (12) Lightheaded: (13) Hypokalemia: (14) Dystrophic nail: Total Time Total Time Spent Total Time Spent (In Minutes): 35 Total Time Includes: Examination of the Patient, Discharge Planning and Medication Reconciliation Discharge Plan Discharge Items Patient Disposition: Home - Home Health Services Reason For Visit: Shortness of breath Discharge Diagnosis: Fluid retention, suspected diastolic heart failure Deconditioning Obstructive sleep apnea Obesity hypoventilation Condition on Discharge: Fair Activity: Resume your previous activity Non-emergency contact: Primary Care Provider Call non-emergency contact if: you have any medication questions and your symptoms worsen Follow-up/Referrals: Radu Govea MD [Primary Care Provider] - 08/16/19 9:00 am (You have an appoinment with your PCP on August 15 at 09:00. Please arrive 15 minutes early. If you can not keep this appoinment please call: [phone] to reschedule. ) Karolyn Perez PA-C [Physician Greens Picker] - 06/18/19 2:00 pm (Congestive Heart Failure Program Appointment Information Early follow up is essential to managing your heart failure. An appointment has been scheduled for you with the [facility] Heart Failure Program within 7 days of discharge. Anticipate this visit to be 30-60 minutes long. Please expect a bus escort phone call from one of our nurses approximately 48 hours from discharge. They will also be placing an order for lab work to be completed 1-2 days prior to your heart failure follow up appointment. Please be sure to have this done so we can go over the results when you come in. Office Location The cardiology office building is located in front of the hospital at [address] Bring the following with you to your follow-up doctor appointments: Please bring your daily weight log any discharge paperwork all of your medication bottles with you to this visit. ) Diet: Low Potassium (2gm) Fluids: 1800ml (7 cups) Addtl Attending Provider Instructions: You were admitted to [facility] from June 03 to 2019 due to shortness of breath. Suspect part of this was due to fluid retention which was treated with reduced salt in your diet and increased water pills (bumex). You lasix water pill was switched for bumex for better absorption as you appear to be doing better on this. You now have good oxygen saturations on room air and are medically stable for discharge. Please follow up with the heart failure clinic as per your appointment above. Congestive Heart Failure: Discharge Instructions Congestive Heart Failure essentially means your heart is able to have a "traffic jam" of fluid that backs up into your lungs. Fluid in lungs then blocks up breathing space making you feel short of breath. In the hospital, our job is to get the fluid off so that you are able to breathe better, and then get you back on track with medication and lifestyle adjustments to keep the traffic jam from happening again. Salt (Sodium) The vast majority of people admitted to the hospital with fluid back up into the lungs get there because of too much salt in their diet. The way our kidneys work: when you take a small amount of sodium, your kidneys hold onto a small amount of water. When you take a large amount of sodium, your kidneys hold onto a large amount of water. When this happens, your blood vessels get flooded, your heart gets overfilled, and the fluid backs up into your lungs. Most people know to avoid the salt shaker, but sodium is in almost anything prepackaged/prepared, as a preservative or as a flavoring agent. Most of the people we take care of who are here with congestive heart failure caused by too much sodium do not use a salt shaker at all. Get into the habit of looking at food labels, so you can see how much sodium is in the foods you eat. The most important number to look at is how much sodium is in each serving. But also notice the size of a serving. [employer] will frequently make a serving size so tiny that it does not look like there is much sodium per serving, but a normal person might eat 3 or 4 servings of the food and take in a lot more sodium than they realized. Keep a "budget" of how much sodium you take in in each day. Most people stay out of trouble and stay out of the hospital as long as they stay "under budget". The majority of congestive heart failure patients do well if they take less than 2000 mg of sodium a day. Because our kidneys retain water based on how much sodium they are seeing in any given moment, it is also important to stay at less than about 500 mg in any given meal. This is because even if you stayed at less than 2000 mg of sodium, but ate it all at once, your kidneys would retain fluid at a rate as though you are taking in much more sodium than you actually are. Occasionally your doctor may specifically recommend restricting even further (such as less than 1500mg per day) so if you have been told to be even stricter with sodium, please follow that advice. -Following How You Are Doing (Wet Versus Dry) Because managing congestive heart failure is an ongoing process, it is very i mportant to learn how to follow your signs and symptoms and track how you are doing at home. This will allow you to catch problems before they become a big deal. In general, as your health care team, we look at managing congestive heart failure chronically as a balance of being "wet" (flooded with fluid) versus being "dry" (dehydrated from treatment). Wet - signs of fluid retention that would warrant further evaluation: Check your weight daily. If your weight goes up by more than 2 pounds in 1 day, it is almost certainly fluid related. This should warrant further thought, and/or a call to your doctor Follow your breathingmost of the time, early on when fluid backs up into your lungs, you will first start to notice shortness of breath when walking, or when lying flat. If you notice either of these, this should warrant further thought, and/or a call to your doctor If you notice both an increase in weight and worsening breathing, that definitely warrants getting seen as soon as possible "Dry"while the goal of managing the disease is to keep you from getting "wet, the medications can sometimes cause a degree of dehydration. Most people with congestive heart failure need frequent lab work (basic metabolic panel). Generally when there has been a change in diuretic dosing (a change in the water pill) or any other major changes, lab work should be followed closely and more frequently afterwards. This is because lab work will frequently show early signs of dehydration before you start to feel bad. Frequent symptoms of being dehydrated include: feeling weak and lightheaded, having lower blood pressures, making less urine than usual, or having a very dry mouth. If you notice any of these signs/symptoms, and you are not due for lab work, it would be quite reasonable to call your doctor to see if lab work or a visit could be arranged. Heart Failure Management Checklist: Limit Salt (Sodium) Intake to 2000mg (2g) per day and 500mg (0.5g) per meal Check weight daily (in same clothes, without shoes) every morning Use the provided chart to enter your weight and salt intake for the day Are you too wet? If you gained 2lb or more - make sure to take your water pill If your breathing is not good (you are more short of breath than usual) call your doctor regardless of weight change If you gained 2lb or more and you are short of breath, see your doctor or come to the emergency room Are you too dry? If you feel weak or lightheaded, have lower blood pressures, make less urine than usual, or have a very dry mouth. Call your doctor Pending Studies at Discharge: No Stand-Alone Forms: [facility], Smoking Cessation Medications and DC Order Prescriptions: New Desenex 2 % Powder 1 applic EXT PRN PRN (Reason: fungal rash) Qty: 43 RF: 0 pramipexole 0.125 mg tablet 0.125 mg PO DAILY Qty: 30 RF: 0 bumetanide 2 mg tablet 2 mg PO BID Qty: 60 RF: 0 Continued anastrozole 1 mg tablet 1 mg PO QAM Qty: 90 RF: 3 levothyroxine [Synthroid] 150 mcg tablet 150 mcg PO Q24H 30 Days Qty: 90 RF: 3 pramipexole 0.25 mg tablet 0.25 mg PO HS 30 Days Qty: 90 RF: 3 propranolol 80 mg capsule,extended release 24 hr 80 mg PO QPM Qty: 90 RF: 3 ipratropium-albuterol 20-100 mcg/actuation mist 1 puff inhalation HS PRN (Reason: Shortness Of Breath Or Wheezing) Qty: 4 RF: 0 Changed potassium chloride [Klor-Con M20] 20 mEq tablet,ER particles/crystals 40 meq PO BID 30 Days Qty: 90 RF: 3 Discontinued furosemide 40 mg tablet 40 mg PO QAM 30 Days Qty: 90 RF: 3 Discharge Orders: Discharge Order (Routine); Ordered 06/12/19 Ordered By: Bandar Gaitan Admission Data Admit Date/Time: 06/05/19 18:33 Attending Provider: Bandar Gaitan Admit Provider: Ayad Bonilla Primary Care Provider: Radu Govea Other Providers: Renzo Aviles Christophe W. Other Interventions: Discharge Summary Assessment (RN) Last Done: 06/12/19 14:11 DC Date/Time DO NOT enter until pt leaves facility: 06/12/19 16:05 Coding Level of Care Code D/C Day Management >30 mins Diagnoses Diastolic congestive heart failure I50.33 Heart failure chronicity: acute on chronic Physical deconditioning R53.81 Graves disease E05.00 Hypertension I10 Hypertension type: essential hypertension Obstructive sleep apnea of adult G47.33 Leukocytosis D72.825 Leukocytosis type: bandemia Anemia D64.9 Breast cancer, right C50.911 Thoracic aortic aneurysm I71.2 Presence of rupture: without rupture Restless leg syndrome G25.81 Nausea R11.0 Lightheaded R42 Hypokalemia E87.6 Dystrophic nail L60.3
== END 2019-06-12 16:05 | disposition home health service (06) | DRG 292 ==
LOC: ED 06:33 → 2W 06:33 → SUATTDRO 10:07 → 2W 11:25 → SUATTDRO 06-05 18:33 → 4W 06-12 04:45
DX: Z77.22 Contact with and (suspected) exposure to environmental tobacco smoke (acute) (chronic); L60.3 Nail dystrophy; Z91.048 Other nonmedicinal substance allergy status; Z88.5 Allergy status to narcotic agent; Z91.81 History of falling; I11.0 Hypertensive heart disease with heart failure; Z85.3 Personal history of malignant neoplasm of breast; T50.1X5A Adverse effect of loop [high-ceiling] diuretics, initial encounter; E66.01 Morbid (severe) obesity due to excess calories; I71.2 Thoracic aortic aneurysm, without rupture; R53.1 Weakness; R11.0 Nausea; Z91.040 Latex allergy status; E05.00 Thyrotoxicosis with diffuse goiter without thyrotoxic crisis or storm; G47.33 Obstructive sleep apnea (adult) (pediatric); Z79.899 Other long term (current) drug therapy; G25.81 Restless legs syndrome; H91.93 Unspecified hearing loss, bilateral; I50.33 Acute on chronic diastolic (congestive) heart failure; D63.8 Anemia in other chronic diseases classified elsewhere; Z51.81 Encounter for therapeutic drug level monitoring; R42 Dizziness and giddiness; E87.6 Hypokalemia; Z68.43 Body mass index [BMI] 50.0-59.9, adult; R21 Rash and other nonspecific skin eruption